=== PATIENT | female | born 1950 | race Caucasian/White ===

== ENCOUNTER 2017-01-26 05:19 | Inpatient (IN) | payer MEDICARE ==
[2017-01-26] MEDS ORDERED: ONDANSETRON 4 MG/2 ML VIAL IVP STA (05:24)
[2017-01-26] MEDS ORDERED: SODIUM CHLORIDE 0.9% 1,000 ML IV STA (05:24)
[2017-01-26 05:31] LABS: Glucose,Whole Blood 141 mg/dL (75-99)
[2017-01-26 05:40] LABS: Basophils # (A) 0.1 k/uL (0-0.2); Basophils % (A) 0 %; CH 27.3; CHCM 33.3; Eosinophils # (A) 0.1 k/uL (0-0.7); Eosinophils % (A) 1 %; HDW 2.81; HGB 12.4 gm/dL (11.4-16.0); Luc # (Auto) 0.18; Luc % (Auto) 2; Lymphocytes # (A) 1.9 k/uL (1.0-4.8); Lymphocytes % (A) 16 %; MCH 28.4 pg (25.0-35.0); MCHC 34.5 g/dL (31.0-37.0); MCV 82.3 fL (80.0-100.0); Mean Platelet Volume 8.6; Monocytes # (A) 0.5 k/uL (0-1.0); Monocytes % (A) 5 %; Neutrophils % (A) 77 %; RBC 4.37 m/uL (3.80-5.40); RDW 15.4 % (11.5-15.5); WBC 11.7 k/uL (3.8-10.6); WBC (Perox) 11.29
--- NOTE | 2017-01-26 05:46 | CT ---
EXAM: CT Head Without Intravenous Contrast CLINICAL HISTORY: Reason: Neuro Deficits TECHNIQUE: Axial computed tomography images of the head/brain without intravenous contrast. CTDI is 60.30 mGy and DLP is 1017.90 mGy-cm. This CT exam was performed using one or more of the following dose reduction techniques: automated exposure control, adjustment of the mA and/or kV according to patient size, and/or use of iterative reconstruction technique. COMPARISON: No relevant prior studies available. FINDINGS: Brain: Patchy and confluent areas of decreased attenuation are seen involving the periventricular and subcortical white matter, likely representing moderate microangiopathy. It is difficult to assess for an acute white matter infarct in this setting. No evidence of an acute transcortical infarct. No hemorrhage. No edema. Ventricles: Cavum septum pellucidum is seen. Bones/joints: Hyperostosis frontalis internus seen. No acute fracture. Soft tissues: Unremarkable. Sinuses: Unremarkable as visualized. No acute sinusitis. Mastoid air cells: Unremarkable as visualized. No mastoid effusion. IMPRESSION: 1. No evidence of an acute transcortical infarct or acute intracranial hemorrhage. 2. Moderate microangiopathy.
[2017-01-26 05:51] LABS: ALT 29 U/L (9-52); AST 18 U/L (14-36); Alkaline Phosphatase 73 U/L (38-126); Anion Gap 12 mmol/L; Blood Urea Nitrogen 26 mg/dL (7-17); Calcium 9.5 mg/dL (8.4-10.2); Carbon Dioxide 20 mmol/L (22-30); Chloride 106 mmol/L (98-107); Glucose 132 mg/dL (74-99); Non-African American GFR(MDRD) >60 (>60 ml/min/1.73 sqM); Potassium 3.9 mmol/L (3.5-5.1); Sodium 138 mmol/L (137-145); Total Bilirubin 0.9 mg/dL (0.2-1.3)
--- NOTE | 2017-01-26 05:56 | XR ---
EXAM: XR Chest, 1 View CLINICAL HISTORY: Reason: altered mental status TECHNIQUE: Frontal view of the chest. COMPARISON: None. FINDINGS: Lungs: Hyperinflation of both lungs is seen suggesting COPD. Bibasilar atelectasis and/or infiltrates. Pleural space: Unremarkable. No pneumothorax. Heart: Patient appears to be status post CABG with sternotomy wires. Bones/joints: Mild degenerative changes involving both shoulders. Osteopenia suggested. Vasculature: Atherosclerotic vascular calcifications are seen involving the aortic arch. IMPRESSION: 1. Findings suggestive of COPD. 2. Bibasilar atelectasis and/or infiltrates
[2017-01-26 06:06] LABS: INR 1.1 (<1.1)
--- NOTE | 2017-01-26 06:07 | ED ---
Neuro HPI - General Source: EMS Mode of arrival: EMS Limitations: no limitations - History of Present Illness Is the patient presenting with stroke symptoms?: Yes Last Known Well Date: 01/25/17 Last Known Well Time: 22:00 -: hour(s) Location: right arm, right leg History of same: Yes Place: home Severity: moderate Quality: numb, tingling Improves With: none Worsens With: none Associated Symptoms: nausea/vomiting, weakness <Alex Tidwell - Last Filed: 01/26/17 08:00> <Nathanael Carmichael - Last Filed: 01/26/17 09:44> - General Stated Complaint: POSS STROKE Time Seen by Provider: 01/26/17 05:24 - History of Present Illness Initial Comments: This patient is 66-year-old woman presenting by ambulance to be evaluated for possible stroke. She had woken up around 3 AM and noted that she was having right-sided numbness to her hand and foot. The last known well time was about 10 PM when she had gone to sleep. She also was feeling like there was some weakness in these same areas. Family notes that the previous day she had been exerting herself much more than usual in the heat and they felt she had not been taking adequate fluids. About 4 AM she began having some nausea and they checked her blood pressure was high. She did take her medication and she started having some vomiting around 5 and called EMS. On arrival, patient denies headache or pain anywhere. She is not having any dyspnea. (Alex Tidwell ) - Related Data Home Medications: Home Medications Medication Instructions Recorded Confirmed Levothyroxine Sodium [Synthroid] 50 mcg PO DAILY 01/26/17 01/26/17 Lisinopril [Zestril] 10 mg PO DAILY 01/26/17 01/26/17 Allergies/Adverse Reactions: Allergies Allergy/AdvReac Type Severity Reaction Status Date / Time Milk Containing Products AdvReac Nausea & Verified 01/26/17 07:51 [Dairy] Vomiting & Diarrhea wheat AdvReac Nausea & Verified 01/26/17 07:51 Vomiting & Diarrhea Review of Systems ROS Other: All systems not noted in ROS Statement are negative. Constitutional: Reports: weakness. Denies: fever, chills Eyes: Denies: vision change Respiratory: Denies: cough, dyspnea, hemoptysis Cardiovascular: Denies: chest pain, palpitations, syncope Gastrointestinal: Reports: nausea, vomiting. Denies: abdominal pain, diarrhea Genitourinary: Denies: dysuria, hematuria Musculoskeletal: Denies: back pain Skin: Denies: rash Neurological: Reports: weakness, numbness. Denies: headache, confusion, vertigo Psychiatric: Reports: anxiety <ClovisreneaAlex - Last Filed: 01/26/17 08:00> ROS Other: All systems not noted in ROS Statement are negative. <AmolNathanael - Last Filed: 01/26/17 09:44> ROS Statement: Those systems with pertinent positive or pertinent negative responses have been documented in the HPI. General Exam Limitations: no limitations General appearance: alert, anxious Head exam: Present: atraumatic, normocephalic Eye exam: Present: normal appearance, PERRL, EOMI. Absent: scleral icterus, conjunctival injection ENT exam: Present: normal oropharynx Neck exam: Present: normal inspection, full ROM Respiratory exam: Present: wheezes. Absent: respiratory distress, rales, rhonchi, stridor Cardiovascular Exam: Present: regular rate, normal rhythm, systolic murmur ( Grade 1/6 systolic ejection murmur). Absent: diastolic murmur, rubs, gallop GI/Abdominal exam: Present: soft. Absent: distended, tenderness, guarding, rebound, mass Extremities exam: Present: normal capillary refill, other (There are chronic deformities consistent with rheumatoid arthritis.). Absent: pedal edema, calf tenderness Neurological exam: Present: alert, oriented X3 Expanded Neurological exam: Present: protecting the airway. Absent: receptive aphasia, expressive aphasia, total aphasia, tremor Patient oriented to: Present: person, place, time Speech: Present: fluid speech Cranial nerves: EOM's Intact: Normal, Tongue Deviation: Normal, Nystagmus: Normal, Facial Sensation: Normal, Facial Palsy with Forehead Movement: Normal ( There may be minimal right facial droop) Sensory exam: Upper Extremity Light Touch: Abnormal Right (Mild decrease), Lower Extremity Light Touch: Abnormal Right (Mild decrease) Motor strength exam: RUE: 4, LUE: 5, RLE: 4, LLE: 5 Eye Response: (4) open spontaneously Motor Response: (6) obeys commands Verbal Response: (5) oriented Skin exam: Present: warm, dry, intact, normal color. Absent: rash <Alex Tidwell - Last Filed: 01/26/17 08:00> Stroke MDM - Lab Data Result diagrams: 01/26/17 05:29 01/26/17 05:29 - EKG Data -: EKG Interpreted by Nm EKG shows normal: sinus rhythm, axis (Normal), intervals (Normal) Rate: normal (Rate 74 bpm) Interpretation: other (Old septal infarct.) <Alex Tidwell - Last Filed: 01/26/17 08:00> - Lab Data Result diagrams: 01/26/17 05:29 01/26/17 05:29 <Nathanael Carmichael - Last Filed: 01/26/17 09:44> - Lab Data Lab Results 01/26/17 01/26/17 01/26/17 Range/Units 05:29 05:29 05:29 WBC 11.7 H (3.8-10.6) k/uL RBC 4.37 (3.80-5.40) m/uL Hgb 12.4 (11.4-16.0) gm/dL Hct 36.0 (34.0-46.0) % MCV 82.3 (80.0-100.0) fL MCH 28.4 (25.0-35.0) pg MCHC 34.5 (31.0-37.0) g/dL RDW 15.4 (11.5-15.5) % Plt Count 276 (150-450) k/uL Neutrophils % 77 % Lymphocytes % 16 % Monocytes % 5 % Eosinophils % 1 % Basophils % 0 % Neutrophils # 9.0 H (1.3-7.7) k/uL Lymphocytes # 1.9 (1.0-4.8) k/uL Monocytes # 0.5 (0-1.0) k/uL Eosinophils # 0.1 (0-0.7) k/uL Basophils # 0.1 (0-0.2) k/uL PT (9.0-12.0) sec INR (<1.1) APTT (22.0-30.0) sec Sodium 138 (137-145) mmol/L Potassium 3.9 (3.5-5.1) mmol/L Chloride 106 (98-107) mmol/L Carbon Dioxide 20 L (22-30) mmol/L Anion Gap 12 mmol/L BUN 26 H (7-17) mg/dL Creatinine 0.60 (0.52-1.04) mg/dL Est GFR (MDRD) Af Amer >60 (>60 ml/min/1.73 sqM) Est GFR (MDRD) Non-Af >60 (>60 ml/min/1.73 sqM) Glucose 132 H (74-99) mg/dL POC Glucose (mg/dL) (75-99) mg/dL POC Glu Salad Counter Attendant ID Calcium 9.5 (8.4-10.2) mg/dL Magnesium (1.6-2.3) mg/dL Total Bilirubin 0.9 (0.2-1.3) mg/dL AST 18 (14-36) U/L ALT 29 (9-52) U/L Alkaline Phosphatase 73 (38-126) U/L Total Creatine Kinase 35 (30-135) U/L CK-MB (CK-2) 0.8 (0.0-2.4) ng/mL CK-MB (CK-2) Rel Index 2.3 Troponin I <0.012 (0.000-0.034) ng/mL Total Protein 7.0 (6.3-8.2) g/dL Albumin 4.0 (3.5-5.0) g/dL Urine Color Urine Appearance (Clear) Urine pH (5.0-8.0) Urine Protein (Negative) Urine Glucose (UA) (Negative) Urine Ketones (Negative) Urine Blood (Negative) Urine Nitrite (Negative) Urine Bilirubin (Negative) Urine Urobilinogen (<2.0) mg/dL Ur Leukocyte Esterase (Negative) Urine RBC (0-5) /hpf Urine WBC (0-5) /hpf Ur Squamous Epith Cells (0-4) /hpf Urine Bacteria (None) /hpf 01/26/17 01/26/17 01/26/17 Range/Units 05:29 05:29 05:44 WBC (3.8-10.6) k/uL RBC (3.80-5.40) m/uL Hgb (11.4-16.0) gm/dL Hct (34.0-46.0) % MCV (80.0-100.0) fL MCH (25.0-35.0) pg MCHC (31.0-37.0) g/dL RDW (11.5-15.5) % Plt Count (150-450) k/uL Neutrophils % % Lymphocytes % % Monocytes % % Eosinophils % % Basophils % % Neutrophils # (1.3-7.7) k/uL Lymphocytes # (1.0-4.8) k/uL Monocytes # (0-1.0) k/uL Eosinophils # (0-0.7) k/uL Basophils # (0-0.2) k/uL PT 11.0 (9.0-12.0) sec INR 1.1 (<1.1) APTT 21.0 L (22.0-30.0) sec Sodium (137-145) mmol/L Potassium (3.5-5.1) mmol/L Chloride (98-107) mmol/L Carbon Dioxide (22-30) mmol/L Anion Gap mmol/L BUN (7-17) mg/dL Creatinine (0.52-1.04) mg/dL Est GFR (MDRD) Af Amer (>60 ml/min/1.73 sqM) Est GFR (MDRD) Non-Af (>60 ml/min/1.73 sqM) Glucose (74-99) mg/dL POC Glucose (mg/dL) 141 H (75-99) mg/dL POC Glu Salad Counter Attendant ID Rosio Grissom Calcium (8.4-10.2) mg/dL Magnesium 1.9 (1.6-2.3) mg/dL Total Bilirubin (0.2-1.3) mg/dL AST (14-36) U/L ALT (9-52) U/L Alkaline Phosphatase (38-126) U/L Total Creatine Kinase (30-135) U/L CK-MB (CK-2) (0.0-2.4) ng/mL CK-MB (CK-2) Rel Index Troponin I (0.000-0.034) ng/mL Total Protein (6.3-8.2) g/dL Albumin (3.5-5.0) g/dL Urine Color Urine Appearance (Clear) Urine pH (5.0-8.0) Urine Protein (Negative) Urine Glucose (UA) (Negative) Urine Ketones (Negative) Urine Blood (Negative) Urine Nitrite (Negative) Urine Bilirubin (Negative) Urine Urobilinogen (<2.0) mg/dL Ur Leukocyte Esterase (Negative) Urine RBC (0-5) /hpf Urine WBC (0-5) /hpf Ur Squamous Epith Cells (0-4) /hpf Urine Bacteria (None) /hpf 01/26/17 Range/Units 08:20 WBC (3.8-10.6) k/uL RBC (3.80-5.40) m/uL Hgb (11.4-16.0) gm/dL Hct (34.0-46.0) % MCV (80.0-100.0) fL MCH (25.0-35.0) pg MCHC (31.0-37.0) g/dL RDW (11.5-15.5) % Plt Count (150-450) k/uL Neutrophils % % Lymphocytes % % Monocytes % % Eosinophils % % Basophils % % Neutrophils # (1.3-7.7) k/uL Lymphocytes # (1.0-4.8) k/uL Monocytes # (0-1.0) k/uL Eosinophils # (0-0.7) k/uL Basophils # (0-0.2) k/uL PT (9.0-12.0) sec INR (<1.1) APTT (22.0-30.0) sec Sodium (137-145) mmol/L Potassium (3.5-5.1) mmol/L Chloride (98-107) mmol/L Carbon Dioxide (22-30) mmol/L Anion Gap mmol/L BUN (7-17) mg/dL Creatinine (0.52-1.04) mg/dL Est GFR (MDRD) Af Amer (>60 ml/min/1.73 sqM) Est GFR (MDRD) Non-Af (>60 ml/min/1.73 sqM) Glucose (74-99) mg/dL POC Glucose (mg/dL) (75-99) mg/dL POC Glu Salad Counter Attendant ID Calcium (8.4-10.2) mg/dL Magnesium (1.6-2.3) mg/dL Total Bilirubin (0.2-1.3) mg/dL AST (14-36) U/L ALT (9-52) U/L Alkaline Phosphatase (38-126) U/L Total Creatine Kinase (30-135) U/L CK-MB (CK-2) (0.0-2.4) ng/mL CK-MB (CK-2) Rel Index Troponin I (0.000-0.034) ng/mL Total Protein (6.3-8.2) g/dL Albumin (3.5-5.0) g/dL Urine Color Yellow Urine Appearance Clear (Clear) Urine pH 5.5 (5.0-8.0) Urine Protein Negative (Negative) Urine Glucose (UA) Negative (Negative) Urine Ketones 1+ H (Negative) Urine Blood Negative (Negative) Urine Nitrite Positive H (Negative) Urine Bilirubin Negative (Negative) Urine Urobilinogen <2.0 (<2.0) mg/dL Ur Leukocyte Esterase Negative (Negative) Urine RBC <1 (0-5) /hpf Urine WBC 1 (0-5) /hpf Ur Squamous Epith Cells 1 (0-4) /hpf Urine Bacteria Rare H (None) /hpf - Medical Decision Making Patient is a 66-year-old woman with symptoms suggestive of acute ischemic stroke. The initial workup does not reveal definite stroke. She has gone back for the CT angiogram and is pending disposition by the stroke team. (Alex Tidwell) Past Medical History Past Medical History: Hypertension History of Any Multi-Drug Resistant Organisms: None Reported Past Surgical History: Coronary Bypass/CABG Past Psychological History: No Psychological Hx Reported Smoking Status: Former smoker Past Alcohol Use History: Occasional Past Drug Use History: None Reported <Alex Tidwell - Last Filed: 01/26/17 08:00> Course <Alex Tidwell - Last Filed: 01/26/17 08:00> <Nathanael Carmichael - Last Filed: 01/26/17 09:44> Vital Signs 01/26/17 01/26/17 01/26/17 05:20 05:45 06:26 Temperature 96.6 F L 97.6 F Pulse Rate 87 79 80 Respiratory 20 20 16 Rate Blood Pressure 149/99 139/73 137/69 O2 Sat by Pulse 94 L 93 L 94 L Oximetry 01/26/17 01/26/17 01/26/17 07:00 07:08 08:08 Temperature 96.8 F L 97.0 F L Pulse Rate 85 85 85 Respiratory 18 14 14 Rate Blood Pressure 136/64 137/67 117/60 O2 Sat by Pulse 100 95 95 Oximetry 01/26/17 09:08 Temperature 97.2 F L Pulse Rate 74 Respiratory 15 Rate Blood Pressure 114/59 O2 Sat by Pulse 94 L Oximetry - Reevaluation(s) Reevaluation #1: 01/26/17 09:43 Patient was endorsed to me by Dr. Tidwell at our shift change pending CAT scan results CT of the brain was negative for acute findings the CTA did show evidence of carotid and vertebral artery pathology. Also evidence of a small aneurysm no evidence of any bleeding. I did discuss case Dr. Rayo the patient will be admitted for evaluation. (Nathanael Carmichael) Reevaluation #2: 01/26/17 09:43 The patient's original NIH score was 10 it is now 3. She is feeling much improved she was not a candidate for TPA. (Nathanael Carmichael) Disposition <Alex Tidwell - Last Filed: 01/26/17 08:00> <Nathanael Carmichael - Last Filed: 01/26/17 09:44> Clinical Impression: CVA (cerebral vascular accident) Disposition: ADMITTED IP TO THIS [facility] Condition: Stable Referrals: Nonstaff,Physician [REFERRING] - 1-2 days
[2017-01-26 06:08] LABS: Creatine Kinase 35 U/L (30-135)
[2017-01-26] MEDS ORDERED: METOCLOPRAMIDE 5 MG/ML 2 ML VIAL IVP STA ×2 (06:10→10:29)
[2017-01-26] MEDS ORDERED: SODIUM CHLORIDE 0.9% 1,000 ML IV ONE (06:20)
[2017-01-26] MEDS ORDERED: RX INFO: IV CONTRAST WAS GIVEN 1 EACH MISC MISCELLANE PRN ×2 (06:20→06:27)
[2017-01-26 06:21] LABS: Creatine Kinase MB 0.8 ng/mL (0.0-2.4); Troponin I <0.012 ng/mL (0.000-0.034)
[2017-01-26] MEDS ORDERED: ASPIRIN 325 MG TAB PO STA (06:23)
[2017-01-26] MEDS ORDERED: DIAZEPAM 5 MG/ML 2 ML SYRINGE IVP STA (06:33)
--- NOTE | 2017-01-26 08:00 | CT ---
EXAMINATION TYPE: CT angio head neck DATE OF EXAM: 01/26/2017 COMPARISON: Correlation CT brain same date HISTORY: 66-year-old female Slurred speech and Rt side numbness TECHNIQUE: Contiguous axial scanning of the head and neck performed with IV Contrast, patient injecte d with 65 mL of Omnipaque 350. Coronal/sagittal MIP reconstructions performed. 3-D reconstructions ge nerated on a dedicated independent workstation. CT DLP: 280 mGycm Automated exposure control for dose reduction was used. 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 The V4 segment left vert ebral artery is not visualized. There is persistent origin of the right posterior cerebral armando ry. No arterial occlusion or other aneurysmal change is seen. Neck: Conventional arterial vessel branching anatomy. There appear to be prominent atrophy changes at the origin of the left vertebral artery and possible occlusion versus subtotal occlusion trace flow is noted within some portions of the V2 and V3 segment . Mild atherosclerotic changes within the left common carotid artery. Mild atherosclerotic changes of t he left bifurcation with patent left ICA. There may be severe narrowing of the proximal left ECA. Mild atherosclerotic narrowing at the origin of the right vertebral artery. Mild atherosclerotic plaque within the right common carotid artery. There are moderate atheroscleroti c changes at the right bifurcation with an estimated 65% stenosis in the right carotid bulb secondary to eccentric partially calcified atherosclerotic plaque. Additional mild atherosclerotic narrowing w ithin the upper cervical right ICA. Emphysematous changes in the visualized upper lungs. Small nodule thyroid tissue in the right thyroid fossa. Spondylotic change throughout the cervical spine. IMPRESSION: 1. NECK: MODERATE (ESTIMATED AT 65%) PROXIMAL RIGHT ICA STENOSIS. 2. NECK: AGE INDETERMINATE TOTAL TO SUBTOTAL OCCLUSION OF THE LEFT VERTEBRAL ARTERY AT ITS ORIGIN. TR BETY INTERMITTENT OPACIFICATION IS SEEN WITHIN THE V2 AND V3 SEGMENTS. 3. 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
[2017-01-26 09:01] LABS: Appearance,Urine Clear (Clear); Bacteria,Urine Rare /hpf; Bilirubin,Urine Negative (Negative); Glucose,Urine (UA) Negative (Negative); Ketones,Urine 1+ (Negative); Leukocyte Esterase,Urine Negative (Negative); Nitrite,Urine Positive (Negative); PH, Urine 5.5 (5.0-8.0); Particle Count 21933; Protein,Urine Negative (Negative); RBC,Urine <1 /hpf (0-5); Squamous Epithelial Cell,Urine 1 /hpf (0-4); UA Billing (MACRO vs. MICRO) MICRO; Urobilinogen,Urine <2.0 mg/dL (<2.0); WBC,Urine 1 /hpf (0-5)
[2017-01-26] MEDS ORDERED: SODIUM CHLORIDE 0.9% 1,000 ML IV SCH (09:45)
[2017-01-26 09:58] LABS: Specific Gravity,Urine 1.048 (1.001-1.035)
--- NOTE | 2017-01-26 12:48 | US ---
EXAMINATION TYPE: US carotid duplex BILAT DATE OF EXAM: 01/26/2017 COMPARISON: NONE CLINICAL HISTORY: 66-year-old female Stenosis. Right sided numbness and weakness. TECHNIQUE: Carotid duplex ultrasound examination. Indirect Doppler criteria was utilized. FINDINGS: There is moderate to severe atherosclerotic change at the right bifurcation and mild to moderate on t he left. Unable to visualize the left vertebral artery. EXAM MEASUREMENTS: RIGHT: Peak Systolic Velocity (PSV) cm/sec ----- Right CCA: 69.1 ----- Right ICA: 164.7 ----- Right ECA: 268.8 ICA/CCA ratio: 2.4 RIGHT: End Diastole cm/sec ----- Right CCA: 10.9 ----- Right ICA: 27.6 ----- Right ECA: 28.0 LEFT: Peak Systolic Velocity (PSV) cm/sec ----- Left CCA: 83.8 ----- Left ICA: 94.7 ----- Left ECA: 204.2 ICA/CCA ratio: 1.1 LEFT: End Diastole cm/sec ----- Left CCA: 18.9 ----- Left ICA: 22.3 ----- Left ECA: 18.4 VERTEBRALS (direction of flow): Right Vertebral: Antegrade Left Vertebral: unable to visualize Moderate to severe plaque right bifurcation. Mild plaque noted left bifurcation. Increased velocities right ECA, right ICA, and left ECA. Unable to visualize left vertebral artery, ?possible occlusion IMPRESSION: 1. Moderate to severe atherosclerotic change of the right bifurcation. Measurements suggest that ther e may be a moderate underlying proximal ICA stenosis. 2. Unable to visualize the left vertebral artery which may be occluded. 3. Correlate with CTA findings. Criteria for Assigning % of Stenosis / Diameter reduction (Estimation based on the indirect measurements of the internal carotid artery velocities (ICA PSV). 1. Normal (no stenosis)=ICA PSV < 125 cm/s: ratio < 2.0: ICA EDV<40 cm/s. 2. Less than 50% stenosis=ICA PSV < 125 cm/s: ratio < 2.0: ICA EDV<40 cm/s. 3. 50 to 69% stenosis=ICA PSV of 125 to 230 cm/s: ration 2.0 ? 4.0: ICA EDV 40-100 cm/s. 4. Greater than 70% stenosis to near occlusion= ICA PSV > 230 cm/s: ratio > 4.0: ICA EDV > 100 cm/s. 5. Near occlusion= ICA PSV velocities may be low or undetectable: variable ratio and ICA EDV. 6. Total occlusion=unable to detect flow.
--- NOTE | 2017-01-26 13:36 | P.HPIM ---
History of Present Illness H&P Date: 01/26/17 Chief Complaint: Stroke This is an extremely pleasant [address] Centeno. Patient chronic stable medical conditions include hypertension, hyperlipidemia, rheumatoid arthritis, coronary artery disease with prior history of CABG. The patient checks her blood pressure regimen regularly and depending on the blood pressure takes her medications. Patient on 3:00 this morning, the workup finding herself numb on the right side right arm and right leg weakness and speech is also a bit slurred slurred and she was leaning on the right side. Some improvement since then but still numb on that side patient had a small stroke in the past. Patient daughter the bedside. He denies any change in vision no headache. Significant past history: Thyroid cancer with surgery, stroke, hypertension, hyperlipidemia, rheumatoid arthritis, COPD, coronary artery disease. Review of Systems GEN.: Tired EYES: None HEENT: None NECK: None RESPIRATORY: Some shortness of breath with exertion at baseline CARDIOVASCULAR: None GASTROINTESTINAL: None GENITOURINARY: None MUSCULOSKELETAL: Pain in multiple joints LYMPHATICS: None HEMATOLOGICAL: None PSYCHIATRY: None NEUROLOGICAL: As above Past Medical History Past Medical History: Cancer, CVA/TIA, Hyperlipidemia, Hypertension, Renal Disease, Rheumatoid Arthritis (RA) Additional Past Medical History / Comment(s): TIA, pt checks blood pressure daily and takes HTN med as needed, cholesterol was 300 and now in 200's with diet change, thyroid cancer with surgery, RA multiple joints, kidney stones which she passed. History of Any Multi-Drug Resistant Organisms: None Reported Past Surgical History: Coronary Bypass/CABG, Heart Catheterization Additional Past Surgical History / Comment(s): 1998 4 vessel CABG, thyroidectomy , colonoscopy-normal. Past Anesthesia/Blood Transfusion Reactions: No Reported Reaction Smoking Status: Former smoker Additional History: Patient smoked for about 39 years, stopped in 1998. lives with her daughter. - Past Family History Father Family Medical History: CVA/TIA, Myocardial Infarction ([place]) Additional Family Medical History / Comment(s): Father had a CVA. He of a [place] at the age of 70yrs. Mother Family Medical History: Diabetes Mellitus Additional Family Medical History / Comment(s): Mother at the age of 38yrs from diabetic complications/heart disease. Medications and Allergies Home Medications Medication Instructions Recorded Confirmed Type Levothyroxine Sodium [Synthroid] 50 mcg PO DAILY 01/26/17 01/26/17 History Lisinopril [Zestril] 10 mg PO DAILY 01/26/17 01/26/17 History Allergies Allergy/AdvReac Type Severity Reaction Status Date / Time Milk Containing Products AdvReac Nausea & Verified 01/26/17 07:51 [Dairy] Vomiting & Diarrhea wheat AdvReac Nausea & Verified 01/26/17 07:51 Vomiting & Diarrhea Physical Exam VITAL SIGNS: 96.6, 87, 20, 140 99, 94% room air GENERAL: Average built, BMI 24.6 laying in bed, comfortable. EYES: Pupils equal. Conjunctiva normal. HEENT: External appearance of nose and ears normal, oral cavity grossly normal. NECK: JVD not raised; masses not palpable. HEART: First and second heart sounds are normal; no edema. LUNGS: Respiratory rate normal; diminished breath sounds and mild wheezing. ABDOMEN: Soft, nontender, liver spleen not palpable, no masses palpable. LYMPHATICS: No lymph nodes palpable in the axilla and neck. PSYCH: Alert and oriented x3; mood and affect normal. 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 Physical therapy is consulted. The given his CDF findings will get a neurology opinion. Bedside swallow testing will be done. Patient advised to take her blood pressure medication regularly rather than when necessary. Lipid profile will be done. Care was discussed at length with the patient daughter the bedside questions were answered. Per patient she wants to be be DO NOT RESUSCITATE
[2017-01-26] MEDS: ENOXAPARIN 40 MG/0.4 ML SYRINGE SQ SCH (13:56)
[2017-01-26] MEDS: ATORVASTATIN 40 MG TAB PO SCH (13:56)
[2017-01-26] MEDS: BACLOFEN 10 MG TAB PO PRN (22:04)
[2017-01-27 04:05] LABS: Cholesterol 217 mg/dL (<200); HDL Cholesterol 71 mg/dL (40-60); Triglycerides 79 mg/dL (<150)
[2017-01-27] MEDS: LEVOTHYROXINE 50 MCG TAB PO SCH (06:28)
--- NOTE | 2017-01-27 08:12 | P.CNNES ---
History of Present Illness Consult date: 01/26/17 Requesting physician: Jesus Rayo Reason for Consult: Stroke Chief complaint: Stroke History of Present Illness: Neurology is being requested to consult on this 60-year-old female for stroke. Patient found to have the following chronic medical conditions: Hypertension hyperlipidemia, rheumatoid arthritis, coronary artery disease with prior history of CABG. Patient self monitors her blood pressure on a regular basis and based on her those results then takes her medication. On January 26 at 0300 hrs., patient workup finding herself with right-sided paresthesias of the upper and lower extremity, speech was slurred and she was leaning to the right. Patient did have some improvement over an undetermined time but still had numbness and tingling. Patient has returned to approximately 60% of baseline per patient at time of consult. Patient is known to have a prior CVA. At the time of contact, the patient was supine in bed, resting in no acute distress, family at the bedside. Patient was alert and oriented 3. Daughter made inquiry regarding using supplements including red yeast rice in place of lipitor and others. Daughter is a Chiropractor. Daughter and patient were recommended to use known meidcations versus supplements given the patients known medical conditions and need to monitor precise dosing and known anticipated effects/results with recognized medications. Review of Systems Systems not noted in HPI or negative Past Medical History Past Medical History: Cancer, CVA/TIA, Hyperlipidemia, Hypertension, Renal Disease, Rheumatoid Arthritis (RA) Additional Past Medical History / Comment(s): TIA, pt checks blood pressure daily and takes HTN med as needed, cholesterol was 300 and now in 200's with diet change, thyroid cancer with surgery, RA multiple joints, kidney stones which she passed. History of Any Multi-Drug Resistant Organisms: None Reported Past Surgical History: Coronary Bypass/CABG, Heart Catheterization Additional Past Surgical History / Comment(s): 1998 4 vessel CABG, thyroidectomy , colonoscopy-normal. Past Anesthesia/Blood Transfusion Reactions: No Reported Reaction Smoking Status: Former smoker - Past Family History Father Family Medical History: CVA/TIA, Myocardial Infarction ([place]) Additional Family Medical History / Comment(s): Father had a CVA. He of a [place] at the age of 70yrs. Mother Family Medical History: Diabetes Mellitus Additional Family Medical History / Comment(s): Mother at the age of 38yrs from diabetic complications/heart disease. Medications and Allergies Home Medications Medication Instructions Recorded Confirmed Type Levothyroxine Sodium [Synthroid] 50 mcg PO DAILY 01/26/17 01/26/17 History Lisinopril [Zestril] 10 mg PO DAILY 01/26/17 01/26/17 History Allergies Allergy/AdvReac Type Severity Reaction Status Date / Time Milk Containing Products AdvReac Nausea & Verified 01/26/17 07:51 [Dairy] Vomiting & Diarrhea wheat AdvReac Nausea & Verified 01/26/17 07:51 Vomiting & Diarrhea Physical Examination - Vital Signs Vital Signs: Vital Signs Temp Pulse Pulse Resp BP BP Pulse Ox 01/27/17 04:00 98.5 F 79 18 117/61 95 01/26/17 23:58 99 F 80 18 128/73 96 01/26/17 23:50 18 89 L 01/26/17 20:00 98.2 F 88 18 102/62 99 01/26/17 16:00 97.2 F L 82 18 100/58 98 01/26/17 15:36 16 01/26/17 11:50 66 16 114/59 97 01/26/17 10:38 80 15 140/65 95 01/26/17 10:08 97.0 F L 69 16 141/78 93 L 01/26/17 09:08 97.2 F L 74 15 114/59 94 L 01/26/17 08:08 97.0 F L 85 14 117/60 95 Intake and Output 01/26/17 01/27/17 01/27/17 22:59 06:59 14:59 Intake Total 700 Output Total 1100 Balance -400 Intake: Intake, IV Titration 700 Amount Sodium Chloride 0.9% 1, 700 000 ml @ 100 mls/hr IV . Q10H STA Rx#:[id number] Output: Urine 1100 Other: Voiding Method Bedside Commode # Voids 1 Weight 54 kg Constitutional: AOx3, cooperative HEENT: NC/AT, slight facial asymmetry is seen. Throat: Supple, no masses Respiratory: No increased work of breathing Cardiac: Regular rate and Rhythm GI: non tender, non distended Musculoskeletal: Screw Machine Tender strengths are Unequal right versus left in the upper extremities: Right 3+ out of 5, left 5 out of 5. Lower extremities strength: Left greater than right: Right 3+ out of 5, left 5 out of 5. Neurological: CN II-XII in tact, patient was AOx3, speech and language are normal, unilateralizing weakness On the right, no seizure activity note on physical exam. Sensation was normal. Integementary: no rash, no erythema Psychiatric: mood and affect appropriate Results - Laboratory Findings CBC and BMP: 01/26/17 05:29 01/26/17 05:29 Abnormal Lab Findings: Abnormal Labs 01/26/17 01/26/17 01/26/17 05:29 05:29 05:29 WBC 11.7 H Neutrophils # 9.0 H APTT Carbon Dioxide 20 L BUN 26 H Glucose 132 H POC Glucose (mg/dL) 141 H Cholesterol LDL Cholesterol, Calc HDL Cholesterol Ur Specific [place] Urine Ketones Urine Nitrite Urine Bacteria 01/26/17 01/26/17 01/26/17 05:29 05:44 08:20 WBC Neutrophils # APTT 21.0 L Carbon Dioxide BUN Glucose POC Glucose (mg/dL) Cholesterol 217 H LDL Cholesterol, Calc 130 H HDL Cholesterol 71 H Ur Specific [place] 1.048 H Urine Ketones 1+ H Urine Nitrite Positive H Urine Bacteria Rare H Assessment and Plan (1) CVA (cerebral vascular accident) Status: Acute Plan: Patient does appear to suffered a CVA. Patient is currently on aspirin and Lipitor, continue per regimen. Prior provider has already ordered bedside swallow test. Lipid panel has been previously ordered. Imaging notes the neck moderate 65% proximal right ICA stenosis. Neck notes age-indeterminate total to subtotal occlusion of the left vertebral artery at its origin. Trace intermittent opacification is seen within the V2 and V3 segments. 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 Due to the patient's history of CABG, known occlusion(s) and CVA prior noting 65% stenosis , recommend vascular consult. Occupational, speech and physical therapy area laready on consult. Carotid Dopplers, CT angiogram and brain CT have already been performed. EEG has been ordered along with serum homocystine level. Status: Neurology will continue to follow provide updates as needed or warranted. I discussed the patient's pertinent medical information with Dr. Shirley. He agrees with the plan of care as implemented.
[2017-01-27] MEDS: ASPIRIN 81 MG CHEW PO SCH (09:03)
[2017-01-27] MEDS: ATORVASTATIN 40 MG TAB PO SCH (09:03)
[2017-01-27] MEDS: ENOXAPARIN 40 MG/0.4 ML SYRINGE SQ SCH (09:04)
[2017-01-27] MEDS: LISINOPRIL 10 MG TAB PO SCH (09:04)
[2017-01-27] MEDS ORDERED: ASPIRIN 325 MG TAB PO SCH (09:46)
[2017-01-27 12:41] LABS: Hemoglobin A1C 5.4 % (4.2-6.1)
--- NOTE | 2017-01-27 15:06 | P.PN ---
Progress Note - Text DATE OF SERVICE: 01/27/2017 PRESENTING COMPLAINT: Stroke INTERVAL HISTORY: This a 60-year-old patient who presented with numbness on the right arm and leg with weakness and slurred speech. Found to have stroke. 01/27/2017: Patient sitting up in the bed, eating her lunch, states her numbness to her right arm and right leg is completely gone, no swallowing difficulties, ambulatory in the hallway. No walker has been needed. Daughter states patient is at her base line prior to this incident. REVIEW OF SYSTEMS: Done for constitutional ,cardiovascular, GI, pulmonary with relevant findings as above. CURRENT MEDICATIONS Aspirin 81 mg, Lipitor 40 mg, levothyroxine, lisinopril. PHYSICAL EXAM VITAL SIGNS: Temperature 96.3, pulse 66, respiratory rate 16, blood pressure 114/58, oxygen saturation 97% on room air. GENERAL APPEARANCE: Sitting up in bed, not in distress. EYES: Pupils equal. Conjunctiva normal. NECK: JVD not raised. Mass not palpable. RESPIRATORY: Respiratory effort normal. Lungs clear to auscultation. CARDIOVASCULAR: First and second sounds normal. No edema. ABDOMEN: Soft. Liver and spleen not palpable. No tenderness. No mass palpable. PSYCHIATRY: Alert and oriented x3. Mood and affect normal. NEUROLOGICAL: Cranial nerves grossly intact. No facial asymmetry. Power and sensation grossly intact, speech improved, back to normal INVESTIGATIONS: ASSESSMENT: -Acute stroke in the left MCA territory in a right-handed patient, likely ischemic -Essential hypertension -Hyperlipidemia -Advanced bilateral rheumatoid arthritis -Coronary artery disease with prior history of CABG in line-COPD in an ex-smoker -DO NOT RESUSCITATE PLAN: Continue aspirin and Lipitor. Continue with physical therapy. We'll continue to follow closely, discharge planning for possibly tomorrow. REPLENISHMENT ASSOCIATE statement: Patient was seen and examined by nurse practitioner Hilda De Leon and all elements of the case discussed with attending Dr. Rayo
--- NOTE | 2017-01-27 15:13 | CONS ---
This is a 66-year-old female. She same in with a history of TIA affecting her right arm numbness and right lower extremity with complete recovery. This happened on Sunday. Patient has a similar episode on the left side about 3 years ago when she had a speech involvement. She was admitted at [facility] and she was first diagnosed with TIA and she went home. This time, patient had extensive workup for this stroke including CT of the head. No intracranial bleed was noted. 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 According to the patient she has a complete recovery, no speech problem. Patient is on antiplatelet therapy including Lipitor. MEDICAL HISTORY: History of hyperlipidemia, hypertension, renal disease, rheumatoid arthritis. SURGICAL HISTORY: Patient had a coronary artery bypass graft done in the past. Patient also had a thyroidectomy and colonoscopy. On examination, patient was seen in her room. She was lying comfortably in the bed. Her vital signs are stable. Neck is supple, no bruits appreciated. Chest is clear to auscultation. Patient has a normal motor function of upper and lower extremities. Speech is normal. CTA was reviewed. Patient has a right- sided 64% stenosis and left side external has occlusion but internal is patent. She has history of right upper and lower extremity numbness with complete recovery. I had a long discussion with the patient. Patient's left carotid has no hemodynamic significant stenosis and right side is 65. Patient was discussed with all the options. Most likely she will need close followup and antiplatelet therapy. I will discuss with Dr. Rayo if patient has to be added with Plavix. If patient goes home, I will follow up in my office. LITZY
[2017-01-28] MEDS: BACLOFEN 10 MG TAB PO PRN (02:59)
[2017-01-28 04:21] VITALS: TEMP 97.6
[2017-01-28] MEDS: LEVOTHYROXINE 50 MCG TAB PO SCH (06:00)
[2017-01-28] MEDS: LISINOPRIL 10 MG TAB PO SCH (07:37)
[2017-01-28] MEDS: ASPIRIN 81 MG CHEW PO SCH (07:37)
[2017-01-28] MEDS: ENOXAPARIN 40 MG/0.4 ML SYRINGE SQ SCH (07:38)
[2017-01-28] MEDS: ATORVASTATIN 40 MG TAB PO SCH (07:38)
--- NOTE | 2017-01-28 07:40 | PN ---
DATE OF SERVICE: 01/27/17 ATTENDING NOTE: This patient was seen and examined by me. Reviewed the note of my nurse practitioner, Ms. De Leon, discussed, additional findings below. INTERVAL HISTORY: This patient presented with acute stroke affecting the right side. Symptoms are greatly improved. Speech is nearly back to normal. The patient seen by Dr. Blackburn from vascular. Recommended antiplatelets agents. On examination, temperature 96.3, blood pressure 104/58. Investigations: LDL 130. ASSESSMENT: 1. Acute stroke in the left MCA territory in a right handed patient likely ischemic with near complete resolution of symptoms. 2. Hyperlipidemia, uncontrolled. 3. Chronic obstructive pulmonary disease in an ex-smoker. PLAN: Care was discussed with the patient and daughter at the bedside. Await further input from neurology. Continue current medication and treatment plan. LITZY
[2017-01-28 07:46] LABS: Anion Gap 11 mmol/L; Blood Urea Nitrogen 12 mg/dL (7-17); Calcium 9.2 mg/dL (8.4-10.2); Carbon Dioxide 25 mmol/L (22-30); Chloride 107 mmol/L (98-107); Glucose 88 mg/dL (74-99); Non-African American GFR(MDRD) >60 (>60 ml/min/1.73 sqM); Potassium 3.9 mmol/L (3.5-5.1); Sodium 143 mmol/L (137-145)
[2017-01-28 08:06] LABS: Basophils % (A) 1 %; CH 26.8; CHCM 31.5; Eosinophils # (A) 0.1 k/uL (0-0.7); Eosinophils % (A) 1 %; HCT 40.6 % (34.0-46.0); HDW 2.72; Hypochromasia Slight; Luc # (Auto) 0.13; Luc % (Auto) 2; Lymphocytes # (A) 1.3 k/uL (1.0-4.8); Lymphocytes % (A) 18 %; MCH 27.4 pg (25.0-35.0); MCHC 32.1 g/dL (31.0-37.0); MCV 85.3 fL (80.0-100.0); Mean Platelet Volume 8.5; Monocytes # (A) 0.4 k/uL (0-1.0); Monocytes % (A) 6 %; Neutrophils # (A) 5.2 k/uL (1.3-7.7); Neutrophils % (A) 73 %; RBC 4.76 m/uL (3.80-5.40); RDW 15.1 % (11.5-15.5); WBC 7.1 k/uL (3.8-10.6); WBC (Perox) 7.53
[2017-01-28] MEDS ORDERED: CLOPIDOGREL 75 MG TAB PO SCH (10:00)
[2017-01-28] MEDS ORDERED: ACETAMINOPHEN TAB 500 MG TAB PO PRN (10:24)
[2017-01-28 11:02] VITALS: BP 140/73; PULSE 89; RESP 18
[2017-01-28] MEDS ORDERED: CYANOCOBALAMIN-FA-PYRIDOXINE 1 EACH TAB PO SCH (12:00)
--- NOTE | 2017-01-28 19:13 | P.PN ---
Subjective Principal diagnosis: CVA/TIA Neurology is following a 60-year-old female for stroke. Patient does have chronic medical conditions that include: Hypertension, hyperlipidemia, rheumatoid arthritis, coronary artery disease with prior history of CABG. Patient was self-monitoring blood pressure on a regular basis and based on those results takes her medication. On January 26 0300 hrs., patient woke up finding herself with right-sided paresthesias of upper or lower extremity, speech was slurred and she was leaning to the right. Patient did have some improvement over an undetermined time but was still having numbness and tingling. Patient had returned to approximately 60% of baseline at the time of original consult. Patient is known to have a prior CVA. January 28, 2017: Patient has returned to baseline, per patient. Patient is AOx3, no acute distress, resting in bed. Objective - Vital Signs Vital signs: Vital Signs Temp 97.6 F 01/28/17 04:00 Pulse 89 01/28/17 11:00 Resp 18 01/28/17 11:00 BP 140/73 01/28/17 11:00 Pulse Ox 92 L 01/28/17 11:00 Intake & Output 01/28/17 01/28/17 01/29/17 06:59 18:59 06:59 Intake Total 270 Balance 270 Weight 54.3 kg Intake: Oral 270 Other: # Voids 3 1 - Exam Constitutional: AOx3, cooperative HEENT: NC/AT, no facial asymmetry is seen. Throat: Supple, no masses Respiratory: No increased work of breathing Cardiac: Regular rate and Rhythm GI: non tender, non distended Musculoskeletal: Internal Medicine Physician Assistant strengths are equal bilaterally 5/5, Lower extremity strengths are equal bilaterally at 5/5. Neurological: CN II-XII in tact, patient was AOx3, speech and language are normal, no unilateralizing weakness, no seizure activity note on physical exam. Sensation was normal. Integementary: no rash, no erythema Psychiatric: mood and affect appropriate - Labs CBC & Chem 7: 01/28/17 07:16 01/28/17 07:16 Assessment and Plan (1) CVA (cerebral vascular accident) Status: Acute Plan: Patient does appear to have suffered a CVA. Patient is currently on aspirin and Lipitor, continue per regimen. Imaging notes the neck moderate 65% proximal right ICA stenosis. Neck notes age-indeterminate total to subtotal occlusion of the left vertebral artery at its origin. Trace intermittent opacification is seen within the V2 and V3 segments. 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 Due to the patient's history of CABG, known occlusion(s) and CVA prior noting 65% stenosis, patient was evaluated by vascular surgery and advised that they would follow out patient with her in the office. Occupational, speech and physical therapy had already consulted on the patient. Carotid Dopplers, CT angiogram and brain CT have already been performed. EEG has been ordered. Serum homocystine level was elevated and FOLBIC was prescribed. Status: Patient is cleared for discharge from a neurological standpoint. Notify the patient to follow-up with a request from our office in 48 hours for a follow-up appointment within 10-14 days. I discussed the patient's pertinent medical information with Dr. Shirley. He agrees with the plan of care as implemented.
--- NOTE | 2017-01-29 13:33 | DS ---
FINAL DIAGNOSES: 1. Acute stroke in the left MCA territory in a right handed patient likely ischemic. 2. Essential hypertension. 3. Hyperlipidemia. 4. Advanced bilateral rheumatoid arthritis. 5. Coronary artery with prior history of coronary artery bypass grafting. 6. Chronic obstructive pulmonary disease in an ex-smoker. 7. Hypothyroidism. 8. CODE STATUS: Do not resuscitate. CONSULTATION: Dr. Blackburn from vascular surgery. Dr. Shirley from neurology. HOSPITAL COURSE: This patient presented with some change in speech, affecting the right side. Symptoms completely resolved. The patient's carotid Doppler did not show any critical stenosis. CT angio of the brain was done. The patient was seen by Dr. Blackburn. Just advised antiplatelet agents. Seen by Dr. Sihrley. On examination, no focal symptoms now. The patient's LDL is 130. The patient is not keen to take some of the medication. She wants to take natural medication. Did explain to her that she has been trying these medicines for a long time but ( ) very high and she should take these to prevent the stroke. The patient did express understanding. DISCHARGE MEDICATIONS: 1. Synthroid 50 mcg po daily. 2. Aspirin 81 mg a day. 3. Lipitor 40 mg po daily. 4. Plavix 75 mg po daily. 5. Folbic one capsule po daily. 6. Zestoretic 04/26.5 one tablet po b.i.d. DC Planning more than 35 minutes. Follow up with Dr. Shirley in one week. Follow up with Dr. Blackburn in two weeks. Follow up with Dr. Conn in one week. [facility] MED[facility] CENTERAnurag
== END 2017-01-28 15:49 | disposition home or self-care (01) | DRG 65 ==
LOC: EC 05:19 → 6SEL 09:44
PROVIDERS: ADMIT Hospitalist; ATTEND Hospitalist
DX: I63.9 Cerebral infarction, unspecified (principal); G81.91 Hemiplegia, unspecified affecting right dominant side; J44.9 Chronic obstructive pulmonary disease, unspecified; I72.6 Aneurysm of vertebral artery; I10 Essential (primary) hypertension; Z66 Do not resuscitate; I65.21 Occlusion and stenosis of right carotid artery; E89.0 Postprocedural hypothyroidism; I25.10 Atherosclerotic heart disease of native coronary artery without angina pectoris; R20.9 Unspecified disturbances of skin sensation; R47.81 Slurred speech; E78.5 Hyperlipidemia, unspecified; T46.4X6A Underdosing of angiotensin-converting-enzyme inhibitors, initial encounter; R29.710 NIHSS score 10; R11.2 Nausea with vomiting, unspecified; F41.9 Anxiety disorder, unspecified; M06.9 Rheumatoid arthritis, unspecified; Z95.1 Presence of aortocoronary bypass graft; Z87.891 Personal history of nicotine dependence; Z83.3 Family history of diabetes mellitus; Z82.49 Family history of ischemic heart disease and other diseases of the circulatory system; Z85.850 Personal history of malignant neoplasm of thyroid; Z79.899 Other long term (current) drug therapy; Z82.3 Family history of stroke; Z87.442 Personal history of urinary calculi; Z86.73 Personal history of transient ischemic attack (TIA), and cerebral infarction without residual deficits; Z87.448 Personal history of other diseases of urinary system; Z91.011 Allergy to milk products; Z91.018 Allergy to other foods; Z91.128 Patient's intentional underdosing of medication regimen for other reason; Z91.14 Patient's other noncompliance with medication regimen
CPT/HCPCS: 36415; 70450; 70496; 70498; 71010; 80048; 80053; 80061; 81001; 82550; 82553; 83036; 83090; 83735; 84484; 85025; 85610; 85730; 93005; 93880; 95816

== ENCOUNTER 2018-11-06 09:27 | Inpatient (IN) | payer OTHER, MEDICARE ==
[2018-11-06] MEDS ORDERED: methylPREDNISolone SOD SUCCI 125 MG/2 ML VIAL IV STA (10:04)
[2018-11-06] MEDS ORDERED: IPRATROPIUM 0.5 MG/2.5 ML NEBU INHALATION STA (10:04)
[2018-11-06] MEDS ORDERED: ALBUTEROL NEBULIZED 2.5 MG/3 ML INHALATION STA (10:04)
[2018-11-06] MEDS ORDERED: HYDROmorphone 0.5 MG/0.5 ML SYRINGE IVP STA (10:05)
[2018-11-06] MEDS ORDERED: ONDANSETRON 4 MG/2 ML VIAL IVP STA (10:05)
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
[2018-11-06 10:58] LABS: Anisocytosis Slight; Basophils # (A) 0.1 k/uL (0-0.2); Basophils % (A) 1 %; Eosinophils % (A) 0 %; HCT 35.8 % (34.0-46.0); HGB 11.6 gm/dL (11.4-16.0); Hypochromasia Slight; Lymphocytes # (A) 0.6 k/uL (1.0-4.8); Lymphocytes % (A) 7 %; MCH 27.6 pg (25.0-35.0); MCHC 32.5 g/dL (31.0-37.0); Mean Platelet Volume 9.2; Monocytes # (A) 0.5 k/uL (0-1.0); Monocytes % (A) 6 %; Neutrophils # (A) 7.2 k/uL (1.3-7.7); Neutrophils % (A) 85 %; RBC 4.21 m/uL (3.80-5.40); RDW 19.3 % (11.5-15.5); WBC 8.5 k/uL (3.8-10.6)
[2018-11-06 11:04] LABS: Platelet Count 57 k/uL (150-450)
[2018-11-06 11:17] LABS: ALT 186 U/L (9-52); AST 233 U/L (14-36); Albumin 3.7 g/dL (3.5-5.0); Alkaline Phosphatase 291 U/L (38-126); Anion Gap 6 mmol/L; Blood Urea Nitrogen 34 mg/dL (7-17); Calcium 9.6 mg/dL (8.4-10.2); Carbon Dioxide 35 mmol/L (22-30); Chloride 103 mmol/L (98-107); Glucose 95 mg/dL (74-99); Magnesium 1.9 mg/dL (1.6-2.3); Sodium 144 mmol/L (137-145); Total Bilirubin 2.9 mg/dL (0.2-1.3); Total Protein 7.3 g/dL (6.3-8.2)
[2018-11-06 12:04] LABS: INR 1.3 (<1.2); Partial Thromboplastin Time 25.4 sec (22.0-30.0)
[2018-11-06 12:09] LABS: D-Dimer 4.11 mg/L FEU (<0.60)
--- NOTE | 2018-11-06 12:11 | XR ---
EXAMINATION TYPE: XR lumbar spine 2 or 3V DATE OF EXAM: 11/06/2018 COMPARISON: None HISTORY: Pain low back 3 weeks TECHNIQUE: Three-view lumbar spine FINDINGS: There 5 lumbar-type vertebral bodies. The pedicles are intact. Mild rotoscoliosis is presen t. There is disc space narrowing posteriorly at L4-5 and L3-4 and L2-3. Some superior endplate change s present at the superior endplate of L2 and wedge deformity is present of L1. This is indeterminate in age. IMPRESSION: 1. Mild Superior endplate compression deformities of L1 and L2 of indeterminate age. 2. Posterior Degenerative disc changes L2-3 through L4-5.
--- NOTE | 2018-11-06 12:12 | XR ---
EXAMINATION TYPE: XR chest 2V DATE OF EXAM: 11/06/2018 COMPARISON: 01/26/2017 INDICATION: Difficulty breathing, COPD TECHNIQUE: Frontal and lateral views of the chest are obtained. FINDINGS: The heart size is normal. The pulmonary vasculature is normal. There is mild infiltrate above the left diaphragm. Correlate for subsegmental atelectasis small amoun t of atelectasis may be at the posterior right lung base. Small posterior pleural effusions are prese nt.. IMPRESSION: 1. Bibasilar infiltrates with small posterior pleural effusions. Follow-up can be performed as clinic ally indicated.
[2018-11-06] MEDS ORDERED: METOCLOPRAMIDE 5 MG/ML 2 ML VIAL IVP STA (12:58)
--- NOTE | 2018-11-06 13:10 | CT ---
CT CHEST FOR PULMONARY EMBOLISM. EXAMINATION TYPE: CT chest angio for PE DATE OF EXAM: 11/06/2018 INDICATION: Difficulty breathing CT DLP: 167.6 mGycm, Automated exposure control for dose reduction was used. CONTRAST: Patient injected with 100 mL of Isovue 370. COMPARISON: None TECHNIQUE: CT of the chest is performed on a spiral scan at 2 mm thick sections. Study is performed with intravenous contrast timed for evaluation for pulmonary embolism. This will limit additional po rtions of the evaluation. 3-D MIP images reconstructed by the technologist are reviewed on the compu ter in the coronal and sagittal planes. FINDINGS: No persistent filling defects are evident to suggest an acute pulmonary embolism. A pretracheal lymph node at the level the leeann measuring 1.3 cm which is enlarged. Additional small er shotty lymphadenopathy is present. Multiple left axillary lymph nodes are present. The larger near the left axillary vein and artery measures 1.1 cm. Within the region of the left breast is a lymph n ode or nodule measuring 1.0 cm. Series 401 image 38. The ascending aorta diameter at the level of the main pulmonary artery is 3.2 cm. The main pulmonary artery diameter at the bifurcation is 2.7 cm. Small bilateral pleural effusions are present. Some adjacent compressive atelectasis is present Limited CT section through the upper abdomen are obtained. The left adrenal gland is thickened at 1.6 cm. There are multiple lytic areas within the thoracic spine. Example images 401 image 92, 401 image 80 IMPRESSIONS: 1. No acute pulmonary embolism. 2. Enlarged lymphadenopathy within the mediastinum and left axillary region. 3. Multiple lytic lesions throughout the thoracic spine. 4. Small bilateral pleural effusions
[2018-11-06] MEDS ORDERED: methylPREDNISolone SOD SUCCI 125 MG/2 ML VIAL IV SCH (18:00)
[2018-11-06] MEDS: KETOROLAC 30 MG/ML 1 ML VIAL IVP SCH ×2 (18:02→23:13)
[2018-11-06] MEDS: IPRATROPIUM-ALBUTEROL 3 ML NEB INHALATION PRN (19:46)
[2018-11-06] MEDS ORDERED: RX INFO: IV CONTRAST WAS GIVEN 1 EACH MISC MISCELLANE PRN (22:32)
[2018-11-06] MEDS ORDERED: IOPAMIDOL-300 CONTRAST 30 ML VIAL (ORAL USE) PO PRN (22:32)
[2018-11-06] MEDS ORDERED: CALCIUM CARBONATE 500 MG CHEWABLE PO PRN (22:41)
[2018-11-06] MEDS ORDERED: ACETAMINOPHEN TAB 325 MG TAB PO PRN (22:41)
[2018-11-06] MEDS ORDERED: NALOXONE 0.4 MG/ML 1 ML VIAL IV PRN (22:41)
[2018-11-06] MEDS ORDERED: MAGNESIUM HYDROXIDE 2,400 MG/10 ML CUP PO PRN (22:41)
[2018-11-06] MEDS ORDERED: LACTULOSE 20 GM/30 ML CUP PO PRN (22:41)
[2018-11-06] MEDS ORDERED: MELATONIN 3 MG TABLET PO PRN (22:41)
[2018-11-06] MEDS: FUROSEMIDE 10 MG/ML 2 ML VIAL IV SCH (23:14)
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
[2018-11-07] MEDS: HYDROmorphone 0.5 MG/0.5 ML SYRINGE IVP PRN ×2 (03:25→23:22)
[2018-11-07] MEDS: KETOROLAC 30 MG/ML 1 ML VIAL IVP SCH ×2 (06:11→12:02)
[2018-11-07] MEDS: FUROSEMIDE 10 MG/ML 2 ML VIAL IV SCH (06:55)
[2018-11-07] MEDS: IPRATROPIUM-ALBUTEROL 3 ML NEB INHALATION SCH ×6 (09:19→23:39)
[2018-11-07] MEDS ORDERED: ONDANSETRON 4 MG/2 ML VIAL IVP PRN (10:28)
--- NOTE | 2018-11-07 11:05 | ECHOF ---
Referral Reason:assess LV function MEASUREMENTS -------- HEIGHT: 152.4 cm WEIGHT: 49.9 kg BP: 131/72 RVIDd: 1.9 cm (< 3.3) IVSd: 1.3 cm (0.6 - 1.1) LVIDd: 3.6 cm (3.9 - 5.3) LVPWd: 1.3 cm (0.6 - 1.1) IVSs: 1.4 cm LVIDs: 2.6 cm LVPWs: 1.4 cm LA Diam: 3.9 cm (2.7 - 3.8) LAESV Index (A-L): 35.12 ml/m Ao Diam: 3.0 cm (2.0 - 3.7) AV Cusp: 1.3 cm (1.5 - 2.6) LA Diam: 3.3 cm (2.7 - 3.8) MV EXCURSION: 21.258 mm (> 18.000) MV EF SLOPE: 68 mm/s (70 - 150) EPSS: 0.7 cm MV E Ian: 1.02 m/s MV A Ian: 0.97 m/s MV E/A Ratio: 1.05 AV maxP.29 mmHg AV meanP.80 mmHg RAP: 5.00 mmHg RVSP: 24.97 mmHg FINDINGS -------- Sinus rhythm. This was a technically adequate study. The left ventricular size is normal. There is mild concentric left ventricular hypertrophy. Overa ll left ventricular systolic function is low-normal with, an EF between 50 - 55 %. Inferior basal H ypokinesis Basal septal hypokinesis The right ventricle is normal in size. The left atrium is mildly dilated. The right atrial size is normal. Interatrial and interventricular septum intact. There is mild aortic stenosis present. Peak/mean gradient across the Aortic Valve is 18.29mmHg / 9. 80mmHg. Mild mitral annular calcification present. Mild mitral regurgitation is present. Mild tricuspid regurgitation present. There is no evidence of pulmonary hypertension. The right v entricular systolic pressure, as measured by Doppler, is 24.97mmHg. There is no pulmonic regurgitation present. The aortic root size is normal. Normal inferior vena cava with normal inspiratory collapse consistent with estimated right atrial pre ssure of 5 mmHg. There is no pericardial effusion. CONCLUSIONS -------- 1. The left ventricular size is normal. 2. There is mild concentric left ventricular hypertrophy. 3. Overall left ventricular systolic function is low-normal with, an EF between 50 - 55 %. 4. Inferior basal Hypokinesis 5. Basal septal hypokinesis 6. The right ventricle is normal in size. 7. The left atrium is mildly dilated. 8. The right atrial size is normal. 9. Interatrial and interventricular septum intact. 10. There is mild aortic stenosis present. 11. Peak/mean gradient across the Aortic Valve is 18.29mmHg / 9.80mmHg. 12. Mild mitral annular calcification present. 13. Mild mitral regurgitation is present. 14. Mild tricuspid regurgitation present. 15. There is no evidence of pulmonary hypertension. 16. The right ventricular systolic pressure, as measured by Doppler, is 24.97mmHg. 17. There is no pulmonic regurgitation present. 18. The aortic root size is normal. 19. Normal inferior vena cava with normal inspiratory collapse consistent with estimated right atrial pressure of 5 mmHg. 20. There is no pericardial effusion. BUSINESS CONTINUITY PLANNING DIRECTOR: Daiana Cruz RDCS
[2018-11-07 11:12] LABS: Albumin 3.5 g/dL (3.5-5.0); Calcium 9.6 mg/dL (8.4-10.2); Potassium 3.5 mmol/L (3.5-5.1); Total Protein 6.9 g/dL (6.3-8.2)
[2018-11-07] MEDS: LEVOTHYROXINE 50 MCG TAB PO SCH (12:03)
[2018-11-07 15:07] VITALS: BMI 20.9
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
[2018-11-07 18:23] LABS: INR 1.2 (<1.2); Partial Thromboplastin Time 24.6 sec (22.0-30.0); Prothrombin Time 12.5 sec (9.0-12.0)
[2018-11-07 19:33] LABS: Anisocytosis Slight; Basophils % (A) 0 %; Eosinophils % (A) 0 %; HCT 32.6 % (34.0-46.0); HGB 10.1 gm/dL (11.4-16.0); Hypochromasia Moderate; Lymphocytes # (A) 1.1 k/uL (1.0-4.8); Lymphocytes % (A) 5 %; MCH 27.4 pg (25.0-35.0); MCHC 31.1 g/dL (31.0-37.0); MCV 88.3 fL (80.0-100.0); Mean Platelet Volume 10.1; Monocytes # (A) 1.2 k/uL (0-1.0); Monocytes % (A) 6 %; Neutrophils # (A) 18.4 k/uL (1.3-7.7); Neutrophils % (A) 88 %; RBC 3.69 m/uL (3.80-5.40); RDW 19.3 % (11.5-15.5); WBC 20.9 k/uL (3.8-10.6)
[2018-11-07 19:41] LABS: Platelet Count 131 k/uL (150-450)
[2018-11-07 19:55] LABS: Poikilocytosis (M) Present
[2018-11-07] MEDS ORDERED: SODIUM CHLORIDE 0.9% 1,000 ML IV SCH (21:45)
[2018-11-07] MEDS ORDERED: FUROSEMIDE 10 MG/ML 2 ML VIAL IV ONE (21:53)
--- NOTE | 2018-11-07 22:24 | XR ---
EXAM: XR Chest, 1 View CLINICAL HISTORY: ITS.REASON XR Reason: prior to starting flui TECHNIQUE: Frontal view of the chest. COMPARISON: Chest radiograph on 11/06/2018 FINDINGS: Hardware: None. Lungs/pleura: Bibasilar opacities likely represent increased bilateral pleural effusions with associated atelectasis versus pneumonia. Persistent pulmonary vasculature congestion. Heart/mediastinum: Stable cardiomediastinal silhouette. Atherosclerotic calcifications of the aorta. Median sternotomy and CABG changes. Soft tissues: Unremarkable. Bones: No acute fracture. Osteopenia. Degenerative changes of the acromioclavicular joints, glenohumeral joints, and spine. Upper abdomen: Normal. IMPRESSION: Slightly increased bilateral pleural effusions with associated atelectasis versus pneumonia.
[2018-11-07] MEDS: LISINOPRIL 10 MG TAB PO SCH (22:39)
--- NOTE | 2018-11-07 22:57 | PN ---
PROGRESS NOTE DATE OF ADMISSION: 11/06/2018 DATE OF SERVICE: 11/07/2018 PRESENTING COMPLAINT: Back pain, short of breath. INTERVAL HISTORY: Patient admitted with what appears to be congestive heart failure. Did get IV Lasix. Also has multiple lytic lesions in the thoracic spine from breast cancer and also COPD, an ex-smoker. The patient is still a bit short of breath this morning. Multiple family members are present. She feels a bit tired. REVIEW OF SYSTEMS: Done for constitutional, cardiovascular, GI, pulmonary; relevant findings as above. CURRENT MEDICATIONS: Reviewed. They include DuoNeb. The patient did get 2 doses of Lasix, one dose last night and one dose early this morning. PHYSICAL EXAMINATION: Temperature 98.5, pulse 87, respiration 20, blood pressure 129/72, pulse ox 93% on 6 L. GENERAL APPEARANCE: Sitting up, tired. EYES: Pupils equal. Conjunctivae normal. NECK: JVD unable to assess. Mass not palpable. RESPIRATORY: Effort increased. LUNGS: Decreased breath sounds. CARDIOVASCULAR: First and second sounds normal. Minimal edema. ABDOMEN: Soft, non-tender. Liver and spleen not palpable. PSYCHIATRY: Alert and oriented x3. Mood and affect normal. INVESTIGATIONS: White count 20.9, hemoglobin 10.1, platelets 131. Potassium 3.5. BUN 50, creatinine 1.15. LDH 879. Two-D echo shows EF of 50% to 55% and inferior basal and septal hypokinesis. ASSESSMENT: 1. Acute congestive heart failure exacerbation from diastolic dysfunction, ejection fraction 50% to 55%, from underlying coronary artery disease. 2. Coronary artery disease with prior history of coronary artery bypass. 3. Multiple thoracic spine lytic lesions, probably from left breast cancer. 4. Chronic hypoxic respiratory failure, on home oxygen at 2 liters. 5. Acute hypoxic respiratory failure from pulmonary edema. 6. Need to rule out rheumatoid lung. 7. Chronic obstructive pulmonary disease in an ex-smoker. 8. Hyperlipidemia. 9. Essential hypertension. PLAN: Discussed with Dr. Jacqueline Mercado. The patient has been taking natural supplements, including vitamin E, that may interfere with the biopsy; so just to hold off for a short time. I also spoke to Aaliyah Hardwick from Oncology. It seems that it will be okay to proceed with a biopsy, as other parameters are okay. Will let Oncology decide with Dr. Jacqueline Mercado. Also Radiation Oncology is being consulted. That will help probably with the pain in the spine. We will also get a cardiology opinion based on echo results and will give another dose of Lasix 20. Will also do a high-resolution CT scan of the chest in the morning to check for rheumatoid lung. I had a very lengthy discussion with the patient's family at the bedside. They are understanding that the patient's overall prognosis is guarded, especially in view now of breast cancer which appears to be metastatic. Prognosis is even more guarded. Total time spent today was about 45 minutes with over 30 minutes of discussion. MMODL / IJN: [id number] /
[2018-11-07] MEDS: methylPREDNISolone SOD SUCCI 40 MG/ML 1 ML VIAL IV SCH (23:15)
[2018-11-07 23:52] LABS: Appearance,Urine Clear (Clear); Bilirubin,Urine Negative (Negative); Blood,Urine Negative (Negative); Color,Urine Yellow; Glucose,Urine (UA) Negative (Negative); Ketones,Urine Negative (Negative); Leukocyte Esterase,Urine Negative (Negative); Nitrite,Urine Negative (Negative); Protein,Urine Negative (Negative); Specific Gravity,Urine 1.023 (1.001-1.035)
[2018-11-08 02:58] LABS: Hepatitis A Antibody IgM Non-Reactive (Non-Reactive); Hepatitis B Core IgM Non-Reactive (Non-Reactive)
[2018-11-08] MEDS: IPRATROPIUM-ALBUTEROL 3 ML NEB INHALATION SCH ×6 (03:23→23:18)
[2018-11-08] MEDS: LEVOTHYROXINE 50 MCG TAB PO SCH (05:18)
[2018-11-08] MEDS: HYDROmorphone 0.5 MG/0.5 ML SYRINGE IVP PRN ×2 (06:14→15:54)
[2018-11-08 07:53] LABS: Albumin 3.4 g/dL (3.5-5.0); Calcium 9.4 mg/dL (8.4-10.2); Potassium 4.3 mmol/L (3.5-5.1); Total Bilirubin 2.5 mg/dL (0.2-1.3); Total Protein 6.7 g/dL (6.3-8.2)
[2018-11-08 07:59] LABS: Anisocytosis Slight; HCT 32.6 % (34.0-46.0); HGB 10.2 gm/dL (11.4-16.0); Hypochromasia Slight; MCH 27.6 pg (25.0-35.0); MCHC 31.4 g/dL (31.0-37.0); Mean Platelet Volume 9.6; Platelet Count 115 k/uL (150-450); RBC 3.71 m/uL (3.80-5.40); RDW 18.7 % (11.5-15.5); WBC 16.3 k/uL (3.8-10.6)
[2018-11-08] MEDS: methylPREDNISolone SOD SUCCI 40 MG/ML 1 ML VIAL IV SCH ×2 (08:48→15:55)
[2018-11-08 09:36] LABS: Lymphocytes # (M) 0.16 k/uL (1.0-4.8); Monocytes # (M) 0.16 k/uL (0-1.0); Neutrophils # (M) 15.97 k/uL (1.3-7.7); Neutrophils % (M) 98 %; Nucleated Red Blood Cells 0 /100 WBC (0-0); Total Cells Counted 100
[2018-11-08 11:02] LABS: Iron Saturation 21.22 (12.00-45.00)
--- NOTE | 2018-11-08 13:26 | CONS ---
CONSULTATION Brigida is a 68-year-old lady with large breast mass was admitted to hospital with shortness of breath. She has multiple and complex problems including prior CVA, COPD, breast cancer, hypertension, dyslipidemia, coronary artery disease, status post CABG, past thyroidectomy. On this presentation, her predominant symptom is in the form of back pain and shortness of breath. Cardiology had been consulted because of difficulty in breathing and elevated BNP. The patient's clinical presentation is not consistent with congestive heart failure and her BNP elevation can simply be related to possible underlying malignancy. She had a chest x-ray that showed small bilateral pleural effusions. PAST MEDICAL HISTORY: Past medical history is significant for hypertension, hypothyroidism, and breast mass. MEDICATIONS: Medications at home included Zestril and Synthroid. ALLERGIES: Allergic to SOY, MILK, GLUTEN and CORN. FAMILY HISTORY: Family history is negative for premature coronary artery disease. SOCIAL HISTORY: Social history is negative for current smoking, EtOH abuse, or drug abuse. REVIEW OF SYSTEMS: HEENT is unremarkable. CARDIAC: As described above. RESPIRATORY: As described above. GI: Negative. GENITOURINARY: Negative. ALLERGY/IMMUNOLOGY: Negative. SKIN: Negative. MUSCULOSKELETAL: Significant for arthritis. PSYCHOSOCIAL: Negative. ENDOCRINE: Negative. DERM: Negative. CONSTITUTIONAL: Significant for fatigue and tiredness. ONCOLOGICAL: Significant for possible metastatic cancer. PHYSICAL EXAMINATION: On exam, heart rate rate is 86 beats per minute, blood pressure is 129/64, respiratory rate is 24. Chest exam reveals diminished air entry at the bases. Heart exam reveals first and second heart sounds. Systolic murmur at the apex. Abdomen is soft. Examination of the extremities reveals mild edema. Peripheral pulses are palpable. ASSESSMENT: 1. Shortness of breath, probably related to the breast mass and possible metastasis. 2. BNP elevation, probably related to the malignancy. 3. Coronary artery disease, status post coronary artery bypass grafting. PLAN: Her clinical presentation is not consistent with acute onset congestive heart failure. Please work her up and treat her for possible underlying cancer. I will obtain a 2D echo to assess LV function and rule out any pericardial effusion. MMODL / IJN: [id number] /
--- NOTE | 2018-11-08 14:13 | NM ---
EXAMINATION TYPE: NM bone scan whole body DATE OF EXAM: 11/08/2018 COMPARISON: CTA chest 11/06/2018 HISTORY: Metastatic disease Delayed whole-body scanning was performed following the injection of 24 mCi Tc 99m MDP. Images were acquired 3.75 hours post injection. Significant contamination is over the right antecubital fossa and on the patient's canal. Right elbow metastases cannot be evaluated. FINDINGS: There are scattered punctate areas of increased uptake scattered through the axial skeleton. This is somewhat focal at T7. A compression deformity may be present. Additional punctate areas are within th e thoracic spine at T8 T11 and T12. Some increase uptake within the vertebral body of L1, right aspec t of L2 in the left aspect of L3 is likely present. There is some uptake near the costovertebral junc tion in the region of T4 and on the right at T1. There is focal radiotracer uptake in the region of the left distal sternum and within scattered ribs. Distribution is less typical for trauma for random metastatic lesions. There is focal uptake greater than expected at the summation of the tip of the left scapula with the ribs. Underlying metastatic lesion is likely present. Summation however should be considered within t he differential level. IMPRESSION: 1. Findings suspicious for multiple metastatic lesions through the thoracic and lumbar spine. 2. Few scattered areas of uptake within the ribs more likely related to metastatic disease. 3. Contamination at the right elbow extending along the distal upper arm and in the proximal forearm reported as contamination. Abnormalities at this level cannot be excluded.
--- NOTE | 2018-11-08 14:44 | USB ---
Reason for exam: clinical finding. US Breast LT Left complete breast ultrasound includes all four quadrants, the retroareolar region and axilla. Finding demonstrates a 3.9 x 3.1 x 4.0cm irregular, solid, vascular lesion at 1 o'clock. ASSESSMENT: Highly suggestive of malignancy, BI-RAD 5 RECOMMENDATION: Surgical consultation and ultrasound core biopsy of the left breast.
[2018-11-08] MEDS: LISINOPRIL 10 MG TAB PO SCH (20:17)
--- NOTE | 2018-11-08 23:41 | P.PN ---
Subjective Progress Note Date: 11/08/18 The patient was quite fatigued after her multiple investigational procedures today. She otherwise clinically stable, with no new symptoms. Pain is controlled. No history of loss of sensation in lower abdomen, or not expertise. Bowel and bladder sensation are maintained Objective - Vital Signs Vital signs: Vital Signs Temp 98.4 F 11/08/18 20:00 Pulse 81 11/08/18 20:30 Resp 18 11/08/18 20:00 BP 133/77 11/08/18 20:00 Pulse Ox 96 11/08/18 20:00 Intake & Output 11/08/18 11/08/18 11/09/18 06:59 18:59 06:59 Intake Total 500 80 Output Total 100 Balance 400 80 Weight 51.5 kg Intake: Oral 500 80 Output: Urine 100 Other: Voiding Method Bedside Commode Bedside Commode Bedside Commode # Voids 1 2 - Constitutional General appearance: Present: no acute distress - EENT Eyes: Present: EOMI ENT: Present: hearing grossly normal, normal oropharynx - Respiratory Respiratory: bilateral: CTA - Cardiovascular Rhythm: regular Heart sounds: normal: S1, S2 - Gastrointestinal General gastrointestinal: Present: normal bowel sounds, soft - Integumentary Integumentary: Present: normal - Neurologic Neurologic: Present: CNII-XII intact - Musculoskeletal Musculoskeletal: Present: generalized weakness - Psychiatric Psychiatric: Present: A&O x's 3, appropriate affect - Labs CBC & Chem 7: 11/08/18 06:42 11/08/18 06:42 Labs: Abnormal Lab Results - Last 24 Hours (Table) 11/08/18 11/08/18 Range/Units 06:42 06:42 WBC 16.3 H (3.8-10.6) k/uL RBC 3.71 L (3.80-5.40) m/uL Hgb 10.2 L (11.4-16.0) gm/dL Hct 32.6 L (34.0-46.0) % RDW 18.7 H (11.5-15.5) % Plt Count 115 L (150-450) k/uL Neutrophils # (Manual) 15.97 H (1.3-7.7) k/uL Lymphocytes # (Manual) 0.16 L (1.0-4.8) k/uL Chloride 95 L (98-107) mmol/L Carbon Dioxide 36 H (22-30) mmol/L BUN 64 H (7-17) mg/dL Creatinine 1.35 H (0.52-1.04) mg/dL Glucose 113 H (74-99) mg/dL Total Bilirubin 2.5 H (0.2-1.3) mg/dL AST 151 H (14-36) U/L ALT 155 H (9-52) U/L Alkaline Phosphatase 245 H (38-126) U/L Albumin 3.4 L (3.5-5.0) g/dL Microbiology - Last 24 Hours (Table) 11/06/18 10:33 Blood Culture - Preliminary Blood No Growth after 48 hours Assessment and Plan (1) Breast mass Narrative/Plan: The patient has a large central mass involving the right breast, which has likely been neglect previously. The patient is a symptomatic from the same. This is most likely the primary site for her metastatic disease in the bones. The patient has been evaluated by surgery. She will need a tissue diagnosis, and breast biopsy appears to be the most appropriate target. Case was discussed with radiology, as well as general surgery, Dr. Mercado. The patient had initially refused ultrasound-guided biopsy, and wanted biopsy by surgery. It was felt that the ultrasound-guided process would be quite appropriate, can may be somewhat safer in lesion that is likely due to vascular. This was discussed with patient, and her family were at the bedside. They're agreeable to proceed with ultrasound and biopsy on 11/11/18. Await results It was discussed with the patient and her family in detail, that the clinical picture is most consistent with breast cancer with bone metastasis. They're well aware that (assuming the clinical impression is confirmed by a breast biopsy), this represents noncurable disease. They're quite concerned about her ability to tolerate aggressive antineoplastic therapy given her multiple other m edical problems. They were advised that management options, as well as prognosis good very quite widely depending the final diagnosis, especially the marker status of the tumor. If the tumor was hormone receptor positive the patient could enjoy fairly significant periods of disease control with non chemotherapy therapy modalities. These would generally also provided significant local control. If she had progressive marker status, requiring chemotherapy, then options may be more limited They expressed understanding of the same. We will revisit once biopsy has been finalized Current Visit: Yes Status: Acute Code(s): N63.0 - UNSPECIFIED LUMP IN UNSPECIFIED BREAST SNOMED Code(s): 53057787 (2) Lytic lesion of bone on x-ray Narrative/Plan: Bone scan shows uptake in multiple areas. With this clinical scenario, this is most consistent with bone metastasis from breast cancer. Case was also discussed in detail with radiation oncology who evaluated the patient. At this time there is no evidence of any on compromise or uncontrolled pain. Family are reluctant for radiation unless absolutely necessary. Therefore advised that antineoplastic therapy, as well as the use of Xgeva or Zometa would normally be expected to provide good relief from tumor symptoms. However, if there is rapid progression in terms of signs and symptoms, then radiation oncology will need to be considered earlier. Current Visit: Yes Status: Acute Code(s): M89.9 - DISORDER OF BONE, UNSPECIFIED SNOMED Code(s): 420430064
[2018-11-09] MEDS: methylPREDNISolone SOD SUCCI 40 MG/ML 1 ML VIAL IV SCH ×4 (00:11→23:36)
[2018-11-09] MEDS: SODIUM CHLORIDE 0.9% 1,000 ML IV SCH ×2 (00:15→08:48)
[2018-11-09] MEDS: IPRATROPIUM-ALBUTEROL 3 ML NEB INHALATION SCH ×6 (03:05→22:50)
[2018-11-09] MEDS: HYDROmorphone 0.5 MG/0.5 ML SYRINGE IVP PRN ×3 (05:57→19:52)
[2018-11-09] MEDS: LEVOTHYROXINE 50 MCG TAB PO SCH (05:58)
[2018-11-09 07:15] LABS: Calcium 9.4 mg/dL (8.4-10.2); Potassium 4.3 mmol/L (3.5-5.1)
--- NOTE | 2018-11-09 07:27 | PN ---
PROGRESS NOTE DATE OF SERVICE: 11/08/2018. PRESENTING COMPLAINT: Back pain, short of breath. INTERVAL HISTORY: Patient admitted with what initially appeared to be congestive heart failure. Seen by Cardiology today. Does not feel the same. The patient had received IV Lasix. Some worsening of renal function. The patient did have a bone scan, results of which later showed the patient to have multiple lytic lesions in both the thoracic and vertebral spine. The patient gets very easily short of breath. The patient is rather tired and gets easily short of breath. REVIEW OF SYSTEMS: Done for constitutional, cardiovascular, GI, pulmonary, musculoskeletal and relevant findings as above. CURRENT MEDICATIONS: Reviewed that include DuoNeb, steroids. PHYSICAL EXAMINATION: VITAL SIGNS: Temperature 97.8, pulse 93, respirations 20, blood pressure 116/56, pulse ox 95% on high-flow oxygen. GENERAL APPEARANCE: Sitting up, tired. EYES: Pupils equal. Conjunctivae normal. NECK: JVD not raised. Mass not palpable. RESPIRATORY: Effort increased. LUNGS: Decreased breath sounds. CARDIOVASCULAR: First and second sounds normal. No edema. ABDOMEN: Soft, nontender. Liver and spleen not palpable. PSYCHIATRY: Alert and oriented times three. Mood and affect tired-appearing. INVESTIGATIONS: White count 6.3, hemoglobin 10.2, platelets 115, potassium 4.3, BUN 64, creatinine 1.35. Bone scan showing probably metastasis in the thoracolumbar spine and in the ribs. ASSESSMENT: 1. Metastatic breast cancer with metastases to the bone, thoracic, lumbar spine and ribs. 2. Congestive heart failure felt to be unlikely per Cardiology. 3. Coronary artery disease, prior history of coronary bypass. 4. Chronic hypoxic respiratory failure on home oxygen 2 L. 5. Acute hypoxic respiratory failure. 6. Questionable rheumatoid lung. 7. Chronic obstructive pulmonary disease in an ex-smoker. 8. Hyperlipidemia. 9. Essential hypertension. 10.Acute renal failure from diuresis prerenal. PLAN: The patient's Lasix has been held as of this morning. Will gently hydrate the patient overnight. Did speak to Dr. Jacqueline Carmichael at length. The patient should be able to get a breast biopsy by Sunday. Also spoke to the family at length to keep the site of the bigger picture and patient does get easily short winded. Prognosis not good. The patient CT scan could not be done because of renal function. We will do a high- resolution CT chest tomorrow morning to look for rheumatoid lung. MMODL / IJN: [id number] /
[2018-11-09] MEDS ORDERED: IOPAMIDOL-300 CONTRAST 30 ML VIAL (ORAL USE) PO PRN (08:25)
--- NOTE | 2018-11-09 13:18 | P.PN ---
Subjective Progress Note Date: 11/09/18 this is a pleasant 68-year-old female with large breast mass was admitted to the hospital with shortness of breath. She has multiple and complex problems including prior CVA, COPD, breast cancer, hypertension, hyperlipidemia, coronary artery disease and prior bypass surgery in past thyroidectomy. She presented to the hospital with symptoms of shortness of breath and lower back discomfort. The patient has been noted to have a lytic lesion on her own x-ray. echocardiogram revealed a normal left ventricular systolic function. Overall from a cardiac standpoint patient is stable. Objective - Vital Signs Vital signs: Vital Signs Temp 97.9 F 11/09/18 11:20 Pulse 96 11/09/18 11:49 Resp 18 11/09/18 11:51 BP 119/58 11/09/18 11:20 Pulse Ox 93 L 11/09/18 11:20 Intake & Output 11/08/18 11/09/18 11/09/18 18:59 06:59 18:59 Intake Total 80 Output Total 200 Balance 80 -200 Weight 52 kg Intake: Oral 80 Output: Urine 200 Other: Voiding Method Bedside Commode Bedside Commode Bedside Commode # Voids 2 1 - Exam PHYSICAL EXAMINATION: GENERAL:68-year-old female in no acute distress at the time of my examination HEENT: Head is atraumatic, normocephalic. Pupils equal, round. Sclera anicteric. Conjunctiva are clear. Mucous membranes of the mouth are moist. Neck is supple. There is no elevated jugular venous pressure.no carotid bruit is heard. HEART EXAMINATION:heart S1 S2 1 systolic murmur is heard.] CHEST EXAMINATION:lungs reveal diminished air entry to bilateral bases. ABDOMEN: [ Soft, nontender. Bowel sounds are heard. No organomegaly noted]. EXTREMITIES:[ 2+ peripheral pulses with no evidence of peripheral edema and no calf tenderness noted]. NEUROLOGIC [patient is awake, alert and oriented ?-3.] . - Labs CBC & Chem 7: 11/08/18 06:42 11/09/18 06:29 Labs: Abnormal Lab Results - Last 24 Hours (Table) 11/09/18 Range/Units 06:29 Chloride 97 L (98-107) mmol/L Carbon Dioxide 37 H (22-30) mmol/L BUN 64 H (7-17) mg/dL Glucose 130 H (74-99) mg/dL Microbiology - Last 24 Hours (Table) 11/06/18 10:33 Blood Culture - Preliminary Blood No Growth after 72 hours 11/07/18 22:55 Blood Culture - Preliminary Blood No Growth after 24 hours Assessment and Plan Plan: Assessment and plan #1 metastatic breast cancer with metastases to the bone, thoracic, lumbar spine and ribs #2 coronary artery disease history with prior bypass #3 chronic hypoxic respiratory failure #4 COPD #5 hyperlipidemia #6 acute renal failure Plan From cardiology's perspective, we'll follow this patient along with you now on an as-needed basis only, please on hesitate to call with any questions. DNP note has been reviewed, I agree with a documented findings and plan of care. Patient was seen and examined.
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
[2018-11-09] MEDS: LISINOPRIL 10 MG TAB PO SCH (20:06)
--- NOTE | 2018-11-09 23:04 | PN ---
PROGRESS NOTE DATE OF SERVICE: November 09 2018. PRESENTING COMPLAINT: Short of breath. RECENT HISTORY: The patient is now found to have known to have advanced breast cancer with bony metastasis. I had ordered a high-resolution CT scan of the chest to look for rheumatoid lung to explain shortness of breath. The family declined the same because patient has been very short of breath, which is agreeable, requiring high-flow oxygen. The patient is eating some food. The patient was seen earlier by Cuco Bhagat from Radiation Oncology and Dr. Fried from Oncology. The patient gets short of breath with minimal movement. Able to get to the bedside commode. The patient's 2 daughters and son are present at the bedside. The patient gets easily tired and sleepy. REVIEW OF SYSTEMS: Done for constitutional, cardiovascular, GI, pulmonary, musculoskeletal and relevant findings as above. CURRENT MEDICATIONS: Reviewed include DuoNeb, IV Solu-Medrol, IV fluids. PHYSICAL EXAMINATION: VITAL SIGNS: Temperature 97.9, pulse 77, respirations 22, blood pressure 109/58, pulse ox 93 percent on 12 L. GENERAL APPEARANCE: Sitting on bed, tired-appearing, dozes off. EYES: Pupils equal. Conjunctivae pale. NECK: JVD unable to assess. Mass not palpable. RESPIRATORY: Effort increased. LUNGS: Diminished breath sounds. CARDIOVASCULAR: 1st and 2nd sounds normal. No edema. ABDOMEN: Soft, nontender. Liver and spleen not palpable. PSYCHIATRY: Does answer questions and then dozes off. INVESTIGATIONS: Potassium 4.3, BUN 64, creatinine 0.99. ASSESSMENT: 1. Metastatic breast cancer with metastasis to bone, thoracic, lumbar spine and ribs. 2. Coronary artery disease with prior history of coronary bypass, congestive heart failure ruled out by Cardiology. 3. Chronic hypoxic respiratory failure on home oxygen 2 L. 4. Acute hypoxic respiratory failure with some component from pain in the bones. 5. Rheumatoid lung cannot be ruled out. 6. Chronic obstructive pulmonary disease in an ex-smoker. 7. Hyperlipidemia. 8. Essential hypertension. 9. Acute renal failure from diuresis prerenal improved. PLAN: Continue current medication and treatment plan. We will cut back on the steroids. Other medication and treatment plans to continue. ADVANCED CARE PLANNING: Had a lengthy discussion with the patient, the 2 daughters and son at the bedside. They are not really keen for any further aggressive treatment. The patient's functional status is not very good. Still requiring high amounts of oxygenation. They do not want any major further testing which is entirely reasonable given her frailty, loss of muscle mass. is not good requiring high oxygen. At this point the plan is being considered for patient to go home on Sunday. Decision will be as soon as patient is ready for to move towards hospice. Informational visit will be arranged with hospice as per family choice. Several questions were answered. Also spoke to the son and family is in agreement with the plan and all feel the same. About 20 to 25 minutes were spent for the advanced care planning. MMODL / IJN: [id number] /
[2018-11-10] MEDS: HYDROmorphone 0.5 MG/0.5 ML SYRINGE IVP PRN ×4 (01:53→19:04)
[2018-11-10] MEDS: IPRATROPIUM-ALBUTEROL 3 ML NEB INHALATION SCH ×6 (02:49→23:48)
[2018-11-10] MEDS: LEVOTHYROXINE 50 MCG TAB PO SCH (05:41)
[2018-11-10] MEDS: SODIUM CHLORIDE 0.9% 1,000 ML IV SCH ×2 (05:42→10:53)
[2018-11-10 07:12] LABS: Anion Gap 3 mmol/L; Blood Urea Nitrogen 52 mg/dL (7-17); Calcium 9.1 mg/dL (8.4-10.2); Carbon Dioxide 34 mmol/L (22-30); Chloride 99 mmol/L (98-107); Glucose 121 mg/dL (74-99); Potassium 4.2 mmol/L (3.5-5.1); Sodium 136 mmol/L (137-145)
[2018-11-10] MEDS: methylPREDNISolone SOD SUCCI 40 MG/ML 1 ML VIAL IV SCH ×3 (07:18→23:55)
[2018-11-10] MEDS ORDERED: PIPERACILLIN-TAZOBACTAM 3.375 GM in SODIUM CHLORIDE 0.9% 100 ML IVPB STA (12:11)
[2018-11-10] MEDS: PIPERACILLIN-TAZOBACTAM 3.375 GM in SODIUM CHLORIDE 0.9% 100 ML IVPB SCH (19:52)
[2018-11-10] MEDS: LISINOPRIL 10 MG TAB PO SCH (20:00)
--- NOTE | 2018-11-10 23:56 | PN ---
PROGRESS NOTE DATE OF SERVICE: 11/10/2018. PRESENTING COMPLAINT: Short of breath. INTERVAL HISTORY: This very pleasant lady is now found to have advanced breast cancer with bony metastasis. Remains quite a bit short of breath requiring 12 L this morning, not eating much. Family at the bedside looking into going into hospice. REVIEW OF SYSTEMS: Done for constitutional, cardiovascular, GI, pulmonary; relevant findings as above. CURRENT MEDICATIONS: Reviewed that include DuoNeb, oxygen, IV Solu-Medrol. PHYSICAL EXAMINATION: VITAL SIGNS: Temperature 98.2, pulse 72, respiration 26, blood pressure 164/72, pulse ox 93 percent on 10 L. GENERAL APPEARANCE: Sitting up. Tired appearing. EYES: Pupils are equal. Conjunctivae normal. NECK: JVD not raised. Mass not palpable. RESPIRATORY: Effort increased. LUNGS: Diminished breath sounds. CARDIOVASCULAR: First and second sounds normal. No edema. ABDOMEN: Soft, nontender. Liver and spleen not palpable., PSYCHIATRY: Answering questions, tired. INVESTIGATIONS: Potassium 4.2, BUN 52, creatinine 0.68. ASSESSMENT: 1. Advanced metastatic breast cancer with metastasis to thoracic lumbar spine and the ribs. 2. Increasing back pain from metastatic disease to the bone. 3. Coronary artery disease, prior history of coronary artery bypass. 4. Chronic hypoxic respiratory failure on home oxygen 2 L. 5. Acute hypoxic respiratory failure, slow to respond. 6. Possible bilateral pneumonia. 7. Rheumatoid lung cannot be ruled out. 8. Chronic obstructive pulmonary disease in an ex-smoker. 9. Hyperlipidemia. 10.Essential hypertension. 11.Acute renal failure from diuresis, prerenal, improved. PLAN: We will add IV Zosyn to see if that improves the patient. Had a talk with the patient's son. Awaiting for hospice informational visit so that patient can be discharged tomorrow. Will try to attain pulse ox around 88% so the oxygen requirement can go down. We will also DC the IV fluids. Prognosis poor. Patient is slowly deteriorating. MMODL / IJN: [id number] /
[2018-11-11] MEDS: ALPRAZolam 0.25 MG TAB PO PRN ×2 (02:08→08:13)
[2018-11-11] MEDS: IPRATROPIUM-ALBUTEROL 3 ML NEB INHALATION PRN (02:10)
[2018-11-11] MEDS: PIPERACILLIN-TAZOBACTAM 3.375 GM in SODIUM CHLORIDE 0.9% 100 ML IVPB SCH ×3 (03:20→20:28)
[2018-11-11 05:42] LABS: Anion Gap 4 mmol/L; Blood Urea Nitrogen 41 mg/dL (7-17); Carbon Dioxide 30 mmol/L (22-30); Chloride 103 mmol/L (98-107); Glucose 115 mg/dL (74-99); Potassium 3.9 mmol/L (3.5-5.1); Sodium 137 mmol/L (137-145)
[2018-11-11] MEDS: LEVOTHYROXINE 50 MCG TAB PO SCH (06:27)
[2018-11-11] MEDS: IPRATROPIUM-ALBUTEROL 3 ML NEB INHALATION SCH ×5 (07:01→20:35)
[2018-11-11] MEDS: methylPREDNISolone SOD SUCCI 40 MG/ML 1 ML VIAL IV SCH ×2 (08:12→16:01)
[2018-11-11] MEDS ORDERED: FUROSEMIDE 10 MG/ML 2 ML VIAL IV STA (11:14)
[2018-11-11] MEDS: HYDROmorphone 0.5 MG/0.5 ML SYRINGE IVP PRN ×3 (11:27→20:28)
--- NOTE | 2018-11-11 16:23 | PN ---
PROGRESS NOTE DATE OF SERVICE: November 11, 2018. PRESENT COMPLAINT: Short of breath. INTERVAL HISTORY: This patient with advanced breast cancer with bony metastasis. Remains quite a bit short of breath requiring high degree of oxygenation now down to 9 L. Eating small amounts. Tired. Started on IV antibiotics for pneumonia, coughing up some thick sputum. REVIEW OF SYSTEMS: Done for constitutional, cardiovascular, GI, pulmonary; relevant findings as above. CURRENT MEDICATIONS: Reviewed. Medications reviewed that include DuoNeb, IV Solu-Medrol, IV Zosyn. PHYSICAL EXAMINATION: VITAL SIGNS: Temperature 97.9, pulse 108, respirations 22, blood pressure 140/80, pulse ox 94 percent on 9 L. GENERAL APPEARANCE: Sitting up, tired, short of breath. EYES: Pupils are equal. Conjunctivae normal. NECK: JVD not raised. Mass not palpable. RESPIRATORY: Effort increased. Accessory muscles are working. LUNGS: Diminished breath sounds. Occasional crackles. CARDIOVASCULAR: First and second sounds normal. No edema. ABDOMEN: Soft, nontender. Liver and spleen not palpable. PSYCHIATRY: Awake, tired, but does answer questions. INVESTIGATIONS: Potassium 3.9, BUN 41, creatinine 0.63. ASSESSMENT: 1. Advanced metastatic breast cancer with metastasis to thoracic, lumbar spine and ribs. 2. Possible bilateral pneumonia with sputum production. 3. Increasing back pain from metastatic disease to thoracic and lumbar spine. 4. Coronary artery disease with prior history of coronary bypass. 5. Chronic hypoxic respiratory failure on home oxygen 2 L. 6. Acute hypoxic respiratory failure, requiring high-flow oxygen. 7. Possible bilateral pneumonia, on antibiotics. 8. Rheumatoid lung cannot be ruled out. 9. Chronic obstructive pulmonary disease in an ex-smoker. 10.Hyperlipidemia. 11.Essential hypertension. 12.Acute renal failure from diuresis, prerenal improved. 13.CODE STATUS DO NOT RESUSCITATE. PLAN: Talked to the patient and 2 children at the bedside. We will try another 24 hours for IV Zosyn to see if that improves the symptoms from pneumonia. Otherwise, patient will be transferred to the hospice tomorrow. We will try to also see if patient's oxygen can come down in the meantime. I also spoke to the nurse from the hospice and also spoke to the nurse and the protective services case worker. Total time spent today was about 40 minutes with over 20 to 25 minutes of discussion. MMODL / IJN: [id number] /
[2018-11-11] MEDS: LISINOPRIL 10 MG TAB PO SCH (20:28)
[2018-11-12] MEDS: IPRATROPIUM-ALBUTEROL 3 ML NEB INHALATION SCH ×5 (00:15→15:19)
[2018-11-12] MEDS: methylPREDNISolone SOD SUCCI 40 MG/ML 1 ML VIAL IV SCH ×2 (00:53→09:24)
[2018-11-12] MEDS: HYDROmorphone 0.5 MG/0.5 ML SYRINGE IVP PRN ×4 (00:53→14:51)
[2018-11-12] MEDS: PIPERACILLIN-TAZOBACTAM 3.375 GM in SODIUM CHLORIDE 0.9% 100 ML IVPB SCH ×2 (04:18→11:47)
[2018-11-12] MEDS: LEVOTHYROXINE 50 MCG TAB PO SCH (06:22)
[2018-11-12 09:22] VITALS: TEMP 97
[2018-11-12 15:29] VITALS: BP 166/78; RESP 24
[2018-11-12 15:30] VITALS: PULSE 88
[2018-11-12] MEDS: ALPRAZolam 0.25 MG TAB PO PRN (16:48)
--- NOTE | 2018-11-13 08:33 | DS ---
DISCHARGE SUMMARY DATE OF ADMISSION: 11/06/2018 DATE OF DISCHARGE: 11/12/2018 FINAL DIAGNOSES: 1. Advanced metastatic breast cancer with metastatic thoracic lumbar spine and the ribs. 2. Bilateral pneumonia, suspect gram-negative organism. 3. Increasing back pain from metastatic disease to the thoracolumbar spine. 4. Coronary artery disease with prior history of coronary artery bypass. 5. Chronic hypoxic respiratory failure on home oxygen 2 L. 6. Acute hypoxic respiratory failure from pneumonia requiring high-flow oxygen. 7. Rheumatoid arthritis. 8. Chronic obstructive pulmonary disease in an ex-smoker. 9. Hyperlipidemia. 10.Essential hypertension. 11.Acute renal failure from diuresis, prerenal, improved. 12.CODE STATUS: DO NOT RESUSCITATE. CONSULTATION: 1. Dr. Fried from Oncology. 2. Dr. Alexis Bhagat from Radiation Oncology. 3. Dr. Moreno from Cardiology. 4. Dr. Jacqueline Mercado from General Surgery. HOSPITAL COURSE: This patient presented short of breath, initially felt to be CHF, but then the diagnosis was dropped. A 2D echo showed preserved LV function. The patient has a left breast mass with metastasis to the thoracolumbar spine. Patient also had a bone scan. The patient progressively started to get worse with more pain with very poor functional capacity. The patient was then treated for pneumonia to which she did respond with IV antibiotics requiring high-flow oxygen up to 12 L was brought down to about 5-6 L before discharge with pulse ox above 90%. The patient's oral intake is low. Care was discussed with the patient's 2 daughters, the patient. Questions were answered. Also spoke to the case monitor and hospice paperwork were done. Discussion and discharge planning more than 35 minutes. PHYSICAL EXAMINATION: On examination, temperature 97, pulse 91, respiration 20, blood pressure 166/78, pulse ox 91% on 5 L. LUNGS: Decreased breath sounds. Tired, but able to answer questions. LABS: Potassium 4, BUN 30, creatinine 0.187. DISCHARGE MEDICATIONS: 1. Synthroid 50 mcg a day. 2. Zestril 10 mg q.h.s. 3. Augmentin 875 one tablet q.12 ten tablets. 4. DuoNeb q.4 p.r.n. 5. Ativan 1 mg q.4 p.r.n. 6. Morphine 5 mg q.4 p.r.n. 7. Melatonin 3 mg q.h.s. p.r.n. 8. Prednisone taper. DISPOSITION: [facility]. Follow up with Dr. Senia MENCHACA / MARTA: [id number] /
== END 2018-11-12 18:22 | disposition hospice, inpatient (51) | DRG 597 ==
LOC: EC 09:27 → 3SCARD 14:11
PROVIDERS: ADMIT Hospitalist; ATTEND Hospitalist
DX: C50.412 Malignant neoplasm of upper-outer quadrant of left female breast (principal); J96.21 Acute and chronic respiratory failure with hypoxia; J18.9 Pneumonia, unspecified organism; C79.51 Secondary malignant neoplasm of bone; N17.9 Acute kidney failure, unspecified; J90 Pleural effusion, not elsewhere classified; J44.0 Chronic obstructive pulmonary disease with (acute) lower respiratory infection; J44.1 Chronic obstructive pulmonary disease with (acute) exacerbation; Z66 Do not resuscitate; Z51.5 Encounter for palliative care; D69.59 Other secondary thrombocytopenia; M05.10 Rheumatoid lung disease with rheumatoid arthritis of unspecified site; G89.3 Neoplasm related pain (acute) (chronic); R59.0 Localized enlarged lymph nodes; I10 Essential (primary) hypertension; I49.3 Ventricular premature depolarization; E78.5 Hyperlipidemia, unspecified; E89.0 Postprocedural hypothyroidism; I25.10 Atherosclerotic heart disease of native coronary artery without angina pectoris; T50.1X5A Adverse effect of loop [high-ceiling] diuretics, initial encounter; Z99.81 Dependence on supplemental oxygen; Z79.890 Hormone replacement therapy; Z79.899 Other long term (current) drug therapy; Z86.73 Personal history of transient ischemic attack (TIA), and cerebral infarction without residual deficits; Z95.1 Presence of aortocoronary bypass graft; Z85.850 Personal history of malignant neoplasm of thyroid; Z87.442 Personal history of urinary calculi; Z87.81 Personal history of (healed) traumatic fracture; Z87.891 Personal history of nicotine dependence; Z91.011 Allergy to milk products; Z91.018 Allergy to other foods; Z82.3 Family history of stroke; Z83.3 Family history of diabetes mellitus; Z82.49 Family history of ischemic heart disease and other diseases of the circulatory system
CPT/HCPCS: 36415; 71045; 71046; 71275; 72100; 78306; 80048; 80053; 80074; 81003; 83540; 83550; 83615; 83735; 83880; 84484; 85025; 85379; 85610; 85730; 87040; 87070; 87205; 93005; 93306; 94640; 94760; 96374; 96375; 99285